=== PATIENT | male | born 1975 | race Caucasian/White ===

== ENCOUNTER 2023-02-27 18:39 | Inpatient (IN) | payer MEDICARE, MEDICAID ==
[~2023-02-27] VITALS: Ht 177.8 cm; Wt 69.7 kg
[2023-02-27] MEDS ORDERED: CLOZ100T5 PO (18:58)
[2023-02-27] MEDS ORDERED: CLOZ50TA4 PO (18:59)
[2023-02-27 19:27] LABS: HEMATOCRIT 42.7 % (42.0-52.0); HEMOGLOBIN 14.7 g/dl (13.5-17.5); MEAN CORPUSCULAR HEMOGLOBIN 28.9 pg (27.0-33.0); MEAN CORPUSCULAR HGB CONC 34.4 g/dl (32.0-36.5); MEAN CORPUSCULAR VOLUME 83.9 fl (80.0-96.0); PLATELET COUNT, AUTOMATED 311 10^3/uL (150-450); RED BLOOD COUNT 5.09 10^6/uL (4.30-6.10); WHITE BLOOD COUNT 13.1 10^3/uL (4.0-10.0)
[2023-02-27 19:56] LABS: ETHYL ALCOHOL (ETHANOL) < 0.003 % (0.000-0.010)
[2023-02-27 19:57] LABS: ACETAMINOPHEN LEVEL < 2.0 UG/ML (10.0-20.0); SALICYLATE LEVEL < 3.0 MG/DL (<30)
[2023-02-27 19:58] LABS: ALBUMIN 4.2 G/DL (3.2-5.2); ALKALINE PHOSPHATASE 64 U/L (46-116); ALT/SGPT 103 U/L (7.0-40); AST/SGOT 242 U/L (<34); BILIRUBIN,DIRECT 0.4 MG/DL (<0.4); BLOOD UREA NITROGEN 26 MG/DL (9-23); CALCIUM LEVEL 8.8 MG/DL (8.5-10.1); CARBON DIOXIDE LEVEL 22 MMOL/L (20-31); CHLORIDE LEVEL 104 MMOL/L (98-107); CREATININE FOR GFR 1.03 MG/DL (0.70-1.30); GLOMERULAR FILTRATION RATE > 60.0 (>60); GLUCOSE, FASTING 119 MG/DL (60-100); POTASSIUM SERUM 3.8 MMOL/L (3.5-5.1); SODIUM LEVEL 138 MMOL/L (136-145)
[2023-02-27 20:00] LABS: THYROID STIMULATING HORMONE 1.695 uIU/ML (0.55-4.78)
[2023-02-27] MEDS ORDERED: OLANZapine ORAL DISINTEGRATING TAB 5MG PO ONE (20:00)
[2023-02-27] MEDS ORDERED: OLANZapine INTRAMUSCULAR 10MG VIAL IM ONE (20:20)
[2023-02-27] MEDS ORDERED: HOME MED LIST COMPLETE! XX SCH (20:35)
[2023-02-27] MEDS ORDERED: MOM 30ML SUSPENSION UDC PO PRN (22:00)
[2023-02-27] MEDS ORDERED: OLANZapine 10 MG TAB PO ONE (22:00)
[2023-02-27] MEDS ORDERED: MAALOX 30 ML SUSP *UDC PO PRN (22:00)
[2023-02-28 00:10] LABS: BASO # 0.1 10^3/uL (0.0-0.2); BASO % 0.4 % (0.0-1.0); EOS # 0.1 10^3/uL (0.0-0.5); EOS % 0.4 % (0.0-3.0); HEMATOCRIT 43.5 % (42.0-52.0); HEMOGLOBIN 14.7 g/dl (13.5-17.5); LYMPH # 2.4 10^3/uL (1.5-5.0); LYMPH % 17.8 % (24.0-44.0); MEAN CORPUSCULAR HEMOGLOBIN 28.6 pg (27.0-33.0); MEAN CORPUSCULAR HGB CONC 33.8 g/dl (32.0-36.5); MEAN CORPUSCULAR VOLUME 84.6 fl (80.0-96.0); MONO % 13.6 % (2.0-8.0); NEUTROPHILS # 9.1 10^3/uL (1.5-8.5); NEUTROPHILS % 67.4 % (36.0-66.0); PLATELET COUNT, AUTOMATED 304 10^3/uL (150-450); RED BLOOD COUNT 5.14 10^6/uL (4.30-6.10); WHITE BLOOD COUNT 13.6 10^3/uL (4.0-10.0)
[2023-02-28 00:28] LABS: MONO # 1.8 10^3/uL (0.0-0.8)
[2023-02-28 09:38] LABS: BASO # 0.1 10^3/uL (0.0-0.2); BASO % 0.4 % (0.0-1.0); EOS % 0.2 % (0.0-3.0); HEMATOCRIT 43.1 % (42.0-52.0); HEMOGLOBIN 14.7 g/dl (13.5-17.5); LYMPH # 2.2 10^3/uL (1.5-5.0); LYMPH % 16.9 % (24.0-44.0); MEAN CORPUSCULAR HEMOGLOBIN 29.1 pg (27.0-33.0); MEAN CORPUSCULAR HGB CONC 34.1 g/dl (32.0-36.5); MEAN CORPUSCULAR VOLUME 85.3 fl (80.0-96.0); MONO % 14.9 % (2.0-8.0); NEUTROPHILS # 8.9 10^3/uL (1.5-8.5); NEUTROPHILS % 67.3 % (36.0-66.0); PLATELET COUNT, AUTOMATED 338 10^3/uL (150-450); RED BLOOD COUNT 5.05 10^6/uL (4.30-6.10); WHITE BLOOD COUNT 13.2 10^3/uL (4.0-10.0)
[2023-02-28 09:46] LABS: ALBUMIN 4.3 G/DL (3.2-5.2); ALKALINE PHOSPHATASE 64 U/L (46-116); ALT/SGPT 130 U/L (7.0-40); AST/SGOT 312 U/L (<34); BILIRUBIN,DIRECT 0.5 MG/DL (<0.4); TOTAL PROTEIN 7.2 G/DL (5.7-8.2)
[2023-02-28] MEDS: NICOTINE 21MG/24HR 1 EA TRANSDERMAL TD SCH (11:58)
[2023-02-28 12:46] LABS: HEPATITIS B SURFACE ANTIGEN NEGATIVE (NEGATIVE)
[2023-02-28 13:06] LABS: HEPATITIS B CORE ANTIBODY IGM NEGATIVE (NEGATIVE)
[2023-02-28 13:07] LABS: HEPATITIS C VIRUS ABY INDEX < 0.0 INDEX (<0.8)
[2023-02-28] MEDS: traZODone 50 MG TAB PO PRN (20:40)
[2023-03-01 07:15] LABS: CHOLESTEROL LEVEL 119 MG/DL (<200); CHOLESTEROL RISK RATIO 3.96 (<5); TRIGLYCERIDES LEVEL 80 MG/DL (<150)
[2023-03-01] MEDS: NICOTINE 21MG/24HR 1 EA TRANSDERMAL TD SCH (09:00)
[2023-03-01] MEDS: OLANZapine ORAL DISINTEGRATING TAB 5MG PO PRN (09:37)
[2023-03-01] MEDS: traZODone 50 MG TAB PO PRN (22:50)
[2023-03-02] MEDS: NICOTINE 21MG/24HR 1 EA TRANSDERMAL TD SCH (09:00)
[2023-03-02 14:11] LABS: ALBUMIN 4.1 G/DL (3.2-5.2); BILIRUBIN,DIRECT 0.5 MG/DL (<0.4)
[2023-03-02 17:14] VITALS: BP 119/64
[2023-03-02] MEDS: traZODone 50 MG TAB PO PRN (20:36)
[2023-03-03 06:00] VITALS: BP 132/86
[2023-03-03] MEDS: OLANZapine ORAL DISINTEGRATING TAB 5MG PO PRN (10:20)
[2023-03-03 15:13] LABS: CLOZAPINE 1 446 ng/mL (350-650); CLOZAPINE 2 326 ng/mL (Not Estab.); CLOZAPINE 3 772 ng/mL (.)
[2023-03-03] MEDS: traZODone 50 MG TAB PO PRN (21:29)
[2023-03-04] MEDS: ACETAMINOPHEN TAB 650MG DOSE (2X325MG) PO PRN (08:17)
[2023-03-04 08:25] LABS: BASO # 0.1 10^3/uL (0.0-0.2); BASO % 0.4 % (0.0-1.0); EOS % 0.1 % (0.0-3.0); HEMATOCRIT 45.9 % (42.0-52.0); HEMOGLOBIN 15.2 g/dl (13.5-17.5); LYMPH # 2.2 10^3/uL (1.5-5.0); MEAN CORPUSCULAR HEMOGLOBIN 28.5 pg (27.0-33.0); MEAN CORPUSCULAR HGB CONC 33.1 g/dl (32.0-36.5); MEAN CORPUSCULAR VOLUME 86.1 fl (80.0-96.0); MONO # 1.2 10^3/uL (0.0-0.8); MONO % 8.5 % (2.0-8.0); NEUTROPHILS # 10.4 10^3/uL (1.5-8.5); NEUTROPHILS % 74.4 % (36.0-66.0); PLATELET COUNT, AUTOMATED 490 10^3/uL (150-450); RED BLOOD COUNT 5.33 10^6/uL (4.30-6.10); WHITE BLOOD COUNT 13.9 10^3/uL (4.0-10.0)
[2023-03-04 19:08] VITALS: BP 130/70
[2023-03-04] MEDS: traZODone 50 MG TAB PO PRN (20:31)
[2023-03-05] MEDS: ACETAMINOPHEN TAB 650MG DOSE (2X325MG) PO PRN (07:31)
[2023-03-05] MEDS ORDERED: DOCUSATE SODIUM 100MG CAPSULE PO SCH (09:00)
[2023-03-05 09:12] LABS: ALBUMIN 4.2 G/DL (3.2-5.2); BILIRUBIN,DIRECT 0.2 MG/DL (<0.4); BILIRUBIN,TOTAL 0.6 MG/DL (0.3-1.2); TOTAL PROTEIN 7.1 G/DL (5.7-8.2)
[2023-03-05] MEDS ORDERED: DOCUSATE SODIUM 100MG CAPSULE PO PRN (10:35)
[2023-03-05] MEDS: OLANZapine ORAL DISINTEGRATING TAB 5MG PO PRN (10:49)
[2023-03-05] MEDS: predniSONE 20 MG TAB PO SCH ×2 (12:52→21:36)
[2023-03-05 13:30] LABS: FERRITIN 154.4 NG/ML (10.5-307.3)
[2023-03-05 13:37] LABS: MONO REFLEX EBV COMP NEGATIVE (NEGATIVE)
[2023-03-05] MEDS: BETAMETHASONE VAL 0.1% OINT 15 GM TOP SCH ×2 (14:14→21:00)
[2023-03-05] MEDS: traZODone 50 MG TAB PO PRN (21:36)
[2023-03-06] MEDS ORDERED: LORazepam 2 MG TAB PO ONE (08:15)
[2023-03-06] MEDS ORDERED: diphenhydrAMINE 50MG CAP PO ONE (08:15)
[2023-03-06] MEDS: predniSONE 20 MG TAB PO SCH ×2 (08:47→21:28)
[2023-03-06] MEDS: BETAMETHASONE VAL 0.1% OINT 15 GM TOP SCH ×2 (14:07→21:29)
[2023-03-06 18:11] LABS: ANTI-MITOCHONDRIAL ANTIBODY <20.0 Units (0.0-20.0); EBV VIRAL CAPSID AG IgG >600.0 U/mL (0.0-17.9); EBV VIRAL CAPSID AG IgM <36.0 U/mL (0.0-35.9); LIVER-KIDNEY MICROSOMAL ABY <20.1 Units (0.0-20.0)
[2023-03-06 18:30] VITALS: BP 118/66
[2023-03-06] MEDS: hydrOXYzine 50 MG TAB PO PRN (18:43)
[2023-03-06] MEDS: traZODone 50 MG TAB PO PRN (21:28)
[2023-03-07] MEDS: hydrOXYzine 50 MG TAB PO PRN ×4 (04:33→21:49)
[2023-03-07] MEDS: ACETAMINOPHEN TAB 650MG DOSE (2X325MG) PO PRN (05:44)
[2023-03-07 09:15] LABS: HEMATOCRIT 43.3 % (42.0-52.0); HEMOGLOBIN 13.8 g/dl (13.5-17.5); MEAN CORPUSCULAR HEMOGLOBIN 28.3 pg (27.0-33.0); MEAN CORPUSCULAR HGB CONC 31.9 g/dl (32.0-36.5); MEAN CORPUSCULAR VOLUME 88.7 fl (80.0-96.0); PLATELET COUNT, AUTOMATED 472 10^3/uL (150-450); RED BLOOD COUNT 4.88 10^6/uL (4.30-6.10)
[2023-03-07 09:29] LABS: BLOOD UREA NITROGEN 45 MG/DL (9-23); CALCIUM LEVEL 9.4 MG/DL (8.5-10.1); CARBON DIOXIDE LEVEL 29 MMOL/L (20-31); CHLORIDE LEVEL 116 MMOL/L (98-107); CREATININE FOR GFR 0.97 MG/DL (0.70-1.30); GLOMERULAR FILTRATION RATE > 60.0 (>60); GLUCOSE, FASTING 109 MG/DL (60-100); POTASSIUM SERUM 4.5 MMOL/L (3.5-5.1); SODIUM LEVEL 153 MMOL/L (136-145)
[2023-03-07 09:34] LABS: LYMPHOCYTES 12 % (16-44); MONOCYTES 8 % (0-5); NEUTROPHILS 80 % (28-66)
[2023-03-07 09:36] LABS: PLATELET ESTIMATE INCREASED (NORMAL)
[2023-03-07] MEDS: predniSONE 20 MG TAB PO SCH ×2 (09:46→21:49)
[2023-03-07] MEDS: BETAMETHASONE VAL 0.1% OINT 15 GM TOP SCH (09:51)
[2023-03-07] MEDS ORDERED: LORazepam 2 MG TAB PO STA (10:19)
[2023-03-07] MEDS ORDERED: diphenhydrAMINE 50MG CAP PO STA (10:19)
[2023-03-07] MEDS: BENZTROPINE 1 MG TAB PO SCH ×2 (10:31→21:49)
[2023-03-07 18:47] VITALS: BP 130/78
[2023-03-07 20:08] LABS: BLOOD UREA NITROGEN 39 MG/DL (9-23); CALCIUM LEVEL 9.7 MG/DL (8.5-10.1); CARBON DIOXIDE LEVEL 32 MMOL/L (20-31); CHLORIDE LEVEL 111 MMOL/L (98-107); GLOMERULAR FILTRATION RATE > 60.0 (>60); GLUCOSE, FASTING 111 MG/DL (60-100); POTASSIUM SERUM 4.7 MMOL/L (3.5-5.1); SODIUM LEVEL 148 MMOL/L (136-145)
[2023-03-07] MEDS: traZODone 50 MG TAB PO PRN (21:49)
[2023-03-07] MEDS: BETAMETHASONE VAL 0.1% CR 15 GM TOP SCH (21:50)
[2023-03-08] MEDS: BENZTROPINE 1 MG TAB PO SCH ×2 (09:44→21:04)
[2023-03-08] MEDS: BETAMETHASONE VAL 0.1% CR 15 GM TOP SCH ×2 (09:45→21:04)
[2023-03-08] MEDS: hydrOXYzine 50 MG TAB PO PRN ×2 (13:18→18:12)
[2023-03-08] MEDS: OLANZapine ORAL DISINTEGRATING TAB 5MG PO PRN (15:39)
[2023-03-08 16:15] VITALS: BP 141/79
[2023-03-09] MEDS: BENZTROPINE 1 MG TAB PO SCH ×2 (07:40→20:25)
[2023-03-09 07:41] LABS: BLOOD UREA NITROGEN 37 MG/DL (9-23); CALCIUM LEVEL 9.1 MG/DL (8.5-10.1); CARBON DIOXIDE LEVEL 28 MMOL/L (20-31); CHLORIDE LEVEL 114 MMOL/L (98-107); GLOMERULAR FILTRATION RATE > 60.0 (>60); GLUCOSE, FASTING 91 MG/DL (60-100); POTASSIUM SERUM 4.1 MMOL/L (3.5-5.1); SODIUM LEVEL 145 MMOL/L (136-145)
[2023-03-09] MEDS: OLANZapine ORAL DISINTEGRATING TAB 5MG PO PRN (08:10)
[2023-03-09 09:29] LABS: ALBUMIN 3.4 G/DL (3.2-5.2); ALKALINE PHOSPHATASE 58 U/L (46-116); ALT/SGPT 173 U/L (7.0-40); AST/SGOT 94 U/L (<34); BILIRUBIN,DIRECT 0.3 MG/DL (<0.4); BILIRUBIN,TOTAL 0.6 MG/DL (0.3-1.2); TOTAL PROTEIN 5.9 G/DL (5.7-8.2)
[2023-03-09] MEDS: BETAMETHASONE VAL 0.1% CR 15 GM TOP SCH (11:38)
[2023-03-09 14:13] VITALS: BP 144/93
[2023-03-09] MEDS: hydrOXYzine 50 MG TAB PO PRN (14:16)
[2023-03-09 14:28] LABS: BASO # 0.1 10^3/uL (0.0-0.2); BASO % 0.4 % (0.0-1.0); EOS # 0.2 10^3/uL (0.0-0.5); EOS % 1.3 % (0.0-3.0); HEMATOCRIT 38.2 % (42.0-52.0); HEMOGLOBIN 12.7 g/dl (13.5-17.5); LYMPH # 2.9 10^3/uL (1.5-5.0); LYMPH % 19.7 % (24.0-44.0); MEAN CORPUSCULAR HGB CONC 33.2 g/dl (32.0-36.5); MEAN CORPUSCULAR VOLUME 87.2 fl (80.0-96.0); MONO % 12.7 % (2.0-8.0); NEUTROPHILS # 9.5 10^3/uL (1.5-8.5); NEUTROPHILS % 64.6 % (36.0-66.0); PLATELET COUNT, AUTOMATED 370 10^3/uL (150-450); RED BLOOD COUNT 4.38 10^6/uL (4.30-6.10); WHITE BLOOD COUNT 14.8 10^3/uL (4.0-10.0)
[2023-03-09 15:24] LABS: MONO # 1.9 10^3/uL (0.0-0.8)
[2023-03-09] MEDS ORDERED: predniSONE 20 MG TAB PO SCH (18:40)
[2023-03-09] MEDS ORDERED: LORazepam 1 MG TAB PO ONE (18:40)
[2023-03-09] MEDS: CLOBETASOL PROP 0.05% OINT 30 GM TOP SCH (20:25)
[2023-03-10] MEDS: BENZTROPINE 1 MG TAB PO SCH ×2 (08:50→21:50)
[2023-03-10] MEDS ORDERED: predniSONE 20 MG TAB PO ONE (08:50)
[2023-03-10] MEDS ORDERED: LORazepam 2 MG TAB PO ONE (08:50)
[2023-03-10] MEDS ORDERED: diphenhydrAMINE 50MG CAP PO ONE (08:50)
[2023-03-10] MEDS ORDERED: LORazepam 2 MG/ML 1ML VIAL IM STA (08:59)
[2023-03-10] MEDS ORDERED: chlorproMAZINE INJ 50MG/2ML AMP IM STA (08:59)
[2023-03-10] MEDS ORDERED: diphenhydrAMINE 50MG/ML VIAL IM STA (08:59)
[2023-03-10] MEDS ORDERED: predniSONE 20 MG TAB PO SCH (09:00)
[2023-03-10 09:25] LABS: BLOOD UREA NITROGEN 32 MG/DL (9-23); CALCIUM LEVEL 8.8 MG/DL (8.5-10.1); CARBON DIOXIDE LEVEL 27 MMOL/L (20-31); CHLORIDE LEVEL 112 MMOL/L (98-107); CREATININE FOR GFR 0.88 MG/DL (0.70-1.30); GLOMERULAR FILTRATION RATE > 60.0 (>60); GLUCOSE, FASTING 87 MG/DL (60-100); POTASSIUM SERUM 4.7 MMOL/L (3.5-5.1); SODIUM LEVEL 146 MMOL/L (136-145)
[2023-03-10] MEDS: CLOBETASOL PROP 0.05% OINT 30 GM TOP SCH ×2 (10:33→21:50)
[2023-03-10 16:01] VITALS: BP 137/95
[2023-03-11 07:18] LABS: BLOOD UREA NITROGEN 35 MG/DL (9-23); CALCIUM LEVEL 8.9 MG/DL (8.5-10.1); CARBON DIOXIDE LEVEL 26 MMOL/L (20-31); CHLORIDE LEVEL 115 MMOL/L (98-107); CREATININE FOR GFR 0.91 MG/DL (0.70-1.30); GLOMERULAR FILTRATION RATE > 60.0 (>60); GLUCOSE, FASTING 93 MG/DL (60-100); POTASSIUM SERUM 4.9 MMOL/L (3.5-5.1); SODIUM LEVEL 149 MMOL/L (136-145)
[2023-03-11] MEDS: hydrOXYzine 50 MG TAB PO PRN (09:11)
[2023-03-11] MEDS: BENZTROPINE 1 MG TAB PO SCH ×2 (09:11→21:33)
[2023-03-11] MEDS: predniSONE 20 MG TAB PO SCH (09:11)
[2023-03-11] MEDS: CLOBETASOL PROP 0.05% OINT 30 GM TOP SCH ×2 (09:16→21:32)
[2023-03-11] MEDS ORDERED: LORazepam 1 MG TAB PO ONE (13:45)
[2023-03-12 07:14] VITALS: BP 122/95
[2023-03-12 07:42] LABS: BLOOD UREA NITROGEN 34 MG/DL (9-23); CALCIUM LEVEL 8.9 MG/DL (8.5-10.1); CARBON DIOXIDE LEVEL 29 MMOL/L (20-31); CHLORIDE LEVEL 107 MMOL/L (98-107); CREATININE FOR GFR 0.87 MG/DL (0.70-1.30); GLOMERULAR FILTRATION RATE > 60.0 (>60); GLUCOSE, FASTING 81 MG/DL (60-100); POTASSIUM SERUM 4.9 MMOL/L (3.5-5.1); SODIUM LEVEL 143 MMOL/L (136-145)
[2023-03-12] MEDS: BENZTROPINE 1 MG TAB PO SCH ×2 (07:43→21:53)
[2023-03-12] MEDS: predniSONE 20 MG TAB PO SCH (07:43)
[2023-03-12] MEDS: CLOBETASOL PROP 0.05% OINT 30 GM TOP SCH ×2 (09:00→21:00)
[2023-03-12 15:57] VITALS: BP 132/74
[2023-03-12] MEDS: hydrOXYzine 50 MG TAB PO PRN (18:00)
[2023-03-13] MEDS: BENZTROPINE 1 MG TAB PO SCH ×2 (08:14→21:48)
[2023-03-13] MEDS: CLOBETASOL PROP 0.05% OINT 30 GM TOP SCH ×2 (09:00→21:00)
[2023-03-13] MEDS ORDERED: predniSONE 20 MG TAB PO SCH (09:00)
[2023-03-13 16:27] VITALS: BP 142/90
[2023-03-14 08:35] VITALS: BP 147/114
[2023-03-14] MEDS: BENZTROPINE 1 MG TAB PO SCH (08:41)
[2023-03-14] MEDS: CLOBETASOL PROP 0.05% OINT 30 GM TOP SCH (08:41)
[2023-03-14] MEDS ORDERED: predniSONE 20 MG TAB PO SCH ×2 (09:00)
[2023-03-14 09:17] VITALS: BP 147/114
[2023-03-14 09:22] LABS: HEMATOCRIT 39.4 % (42.0-52.0); HEMOGLOBIN 13.1 g/dl (13.5-17.5); MEAN CORPUSCULAR HEMOGLOBIN 28.7 pg (27.0-33.0); MEAN CORPUSCULAR HGB CONC 33.2 g/dl (32.0-36.5); MEAN CORPUSCULAR VOLUME 86.2 fl (80.0-96.0); PLATELET COUNT, AUTOMATED 389 10^3/uL (150-450); RED BLOOD COUNT 4.57 10^6/uL (4.30-6.10); WHITE BLOOD COUNT 16.2 10^3/uL (4.0-10.0)
[2023-03-14 09:47] LABS: ALBUMIN 3.2 G/DL (3.2-5.2); ALKALINE PHOSPHATASE 61 U/L (46-116); ALT/SGPT 87 U/L (7.0-40); AST/SGOT 57 U/L (<34); BILIRUBIN,TOTAL 0.6 MG/DL (0.3-1.2); BLOOD UREA NITROGEN 25 MG/DL (9-23); CARBON DIOXIDE LEVEL 29 MMOL/L (20-31); CHLORIDE LEVEL 106 MMOL/L (98-107); CREATININE FOR GFR 0.84 MG/DL (0.70-1.30); GLOMERULAR FILTRATION RATE > 60.0 (>60); GLUCOSE, FASTING 91 MG/DL (60-100); POTASSIUM SERUM 4.3 MMOL/L (3.5-5.1); SODIUM LEVEL 140 MMOL/L (136-145); TOTAL PROTEIN 5.7 G/DL (5.7-8.2)
[2023-03-14 10:03] LABS: ATYPICAL LYMPH 6 % (0-5); LYMPHOCYTES 11 % (16-44); MONOCYTES 7 % (0-5); MYELOCYTES 1 % (0-0); NEUTROPHILS 75 % (28-66)
[2023-03-14 10:04] LABS: PLATELET CLUMPS SMALL AMT; PLATELET ESTIMATE NORMAL (NORMAL)
[2023-03-16] MEDS ORDERED: predniSONE 20 MG TAB PO SCH (09:00)
[2023-03-16] MEDS ORDERED: predniSONE 10MG TAB PO SCH ×2 (09:00)
[2023-03-19] MEDS ORDERED: predniSONE 10MG TAB PO SCH (09:00)
== END 2023-03-14 11:00 | DRG 885 ==
LOC: M ED 18:39 → M ED INP 22:00 → M PSY 22:48
PROVIDERS: ADMIT Psychiatry & Neurology Psychiatry; ATTEND Student in an Organized Health Care Education/Training Program
DX: F31.9 Bipolar disorder, unspecified (principal); E87.0 Hyperosmolality and hypernatremia; G91.9 Hydrocephalus, unspecified; F25.9 Schizoaffective disorder, unspecified; F12.90 Cannabis use, unspecified, uncomplicated; F17.200 Nicotine dependence, unspecified, uncomplicated; D72.829 Elevated white blood cell count, unspecified; K76.0 Fatty (change of) liver, not elsewhere classified; R21 Rash and other nonspecific skin eruption; B35.1 Tinea unguium; B35.4 Tinea corporis

== ENCOUNTER 2023-03-14 08:34 | Inpatient (IN) | payer MEDICARE, MEDICAID ==
[~2023-03-14] VITALS: Ht 177.8 cm; Wt 64.9 kg
[~2023-03-14 08:34] MED LIST: CLOZ100T5 PO; CLOZ50TA4 PO
[2023-03-14 11:22] VITALS: BP 103/57; TEMP 98.6; O2SAT 93
[2023-03-14] MEDS ORDERED: DEXTROSE 50% 50ML SYRINGE IV PRN (11:40)
[2023-03-14] MEDS ORDERED: GLUCOSE 4GM CHEW TABLET PO PRN (11:40)
[2023-03-14] MEDS ORDERED: GLUCAGON INJ 1MG VIAL SC PRN (11:40)
[2023-03-14] MEDS ORDERED: D5W/0.45% SODIUM CHLORIDE 1,000 ML IV SCH (12:00)
[2023-03-14] MEDS ORDERED: NS 1,000 ML IV ONE (12:00)
[2023-03-14] MEDS ORDERED: LORazepam 2 MG/ML 1ML VIAL IV ONE (12:30)
[2023-03-14 12:52] LABS: TOTAL 25(OH) VITAMIN D 37.2 NG/ML (20.0-100.0)
[2023-03-14] MEDS: D5W/0.45% SODIUM CHLORIDE 1,000 ML IV SCH (13:13)
[2023-03-14 14:40] VITALS: BP 106/72
[2023-03-14 15:49] VITALS: BP 110/56; TEMP 98.3; O2SAT 99
[2023-03-14] MEDS: CLOBETASOL PROP 0.05% OINT 30 GM TOP SCH (19:03)
[2023-03-14 20:02] VITALS: BP 121/82; TEMP 98.3; O2SAT 99
[2023-03-14] MEDS: BENZTROPINE 1 MG TAB PO SCH (21:46)
[2023-03-15] VITALS (7 sets, daily range): BP systolic 109–118; BP diastolic 58–74; TEMP 98.3–99.1; O2SAT 96–99
[2023-03-15] MEDS: D5W/0.45% SODIUM CHLORIDE 1,000 ML IV SCH ×2 (01:26→14:51)
[2023-03-15 08:01] LABS: BASO % 0.4 % (0.0-1.0); EOS # 0.1 10^3/uL (0.0-0.5); EOS % 1.4 % (0.0-3.0); HEMATOCRIT 35.8 % (42.0-52.0); HEMOGLOBIN 11.7 g/dl (13.5-17.5); LYMPH # 2.1 10^3/uL (1.5-5.0); LYMPH % 20.3 % (24.0-44.0); MEAN CORPUSCULAR HEMOGLOBIN 28.8 pg (27.0-33.0); MEAN CORPUSCULAR HGB CONC 32.7 g/dl (32.0-36.5); MEAN CORPUSCULAR VOLUME 88.2 fl (80.0-96.0); MONO # 1.1 10^3/uL (0.0-0.8); MONO % 10.7 % (2.0-8.0); NEUTROPHILS # 6.9 10^3/uL (1.5-8.5); NEUTROPHILS % 66.1 % (36.0-66.0); PLATELET COUNT, AUTOMATED 290 10^3/uL (150-450); RED BLOOD COUNT 4.06 10^6/uL (4.30-6.10); WHITE BLOOD COUNT 10.4 10^3/uL (4.0-10.0)
[2023-03-15 08:26] LABS: BLOOD UREA NITROGEN 21 MG/DL (9-23); CARBON DIOXIDE LEVEL 26 MMOL/L (20-31); CHLORIDE LEVEL 108 MMOL/L (98-107); GLOMERULAR FILTRATION RATE > 60.0 (>60); GLUCOSE, FASTING 95 MG/DL (60-100); POTASSIUM SERUM 3.8 MMOL/L (3.5-5.1); SODIUM LEVEL 139 MMOL/L (136-145)
[2023-03-15] MEDS ORDERED: diphenhydrAMINE 25MG CAP PO SCH (09:00)
[2023-03-15] MEDS: BENZTROPINE 1 MG TAB PO SCH (09:52)
[2023-03-15] MEDS: CLOBETASOL PROP 0.05% OINT 30 GM TOP SCH (09:53)
[2023-03-15] MEDS: ENOXAPARIN 40MG/0.4ML SYRINGE (J1650 PER 10MG) SC SCH (09:53)
[2023-03-15] MEDS ORDERED: HALOPERIDOL 5MG/ML 1ML VIAL IM PRN ×2 (11:30→14:55)
[2023-03-15] MEDS ORDERED: LORazepam 2 MG/ML 1ML VIAL IV PRN (11:30)
[2023-03-15] MEDS ORDERED: PILL CUTTER 1 EACH XX PRN (12:55)
[2023-03-15 15:19] LABS: PHOSPHORUS LEVEL 2.5 MG/DL (2.5-4.9)
[2023-03-15] MEDS ORDERED: diphenhydrAMINE 25MG CAP PO PRN (16:20)
[2023-03-15] MEDS: LORazepam 2 MG/ML 1ML VIAL IV SCH (20:57)
[2023-03-15] MEDS ORDERED: diphenhydrAMINE 50MG CAP PO SCH (21:00)
[2023-03-16] VITALS (7 sets, daily range): BP systolic 113–138; BP diastolic 61–89; TEMP 97.8–99.9; O2SAT 94–97
[2023-03-16] MEDS: LORazepam 2 MG/ML 1ML VIAL IV SCH ×4 (03:45→20:39)
[2023-03-16] MEDS: D5W/0.45% SODIUM CHLORIDE 1,000 ML IV SCH ×2 (04:00→17:14)
[2023-03-16 05:43] LABS: BASO # 0.1 10^3/uL (0.0-0.2); BASO % 0.5 % (0.0-1.0); EOS # 0.1 10^3/uL (0.0-0.5); EOS % 1.1 % (0.0-3.0); HEMATOCRIT 37.3 % (42.0-52.0); HEMOGLOBIN 12.3 g/dl (13.5-17.5); LYMPH # 2.2 10^3/uL (1.5-5.0); LYMPH % 23.3 % (24.0-44.0); MEAN CORPUSCULAR HEMOGLOBIN 28.3 pg (27.0-33.0); MEAN CORPUSCULAR VOLUME 85.9 fl (80.0-96.0); MONO # 1.1 10^3/uL (0.0-0.8); MONO % 11.3 % (2.0-8.0); NEUTROPHILS % 62.3 % (36.0-66.0); PLATELET COUNT, AUTOMATED 281 10^3/uL (150-450); RED BLOOD COUNT 4.34 10^6/uL (4.30-6.10); WHITE BLOOD COUNT 9.6 10^3/uL (4.0-10.0)
[2023-03-16 06:07] LABS: BLOOD UREA NITROGEN 15 MG/DL (9-23); CARBON DIOXIDE LEVEL 25 MMOL/L (20-31); CHLORIDE LEVEL 109 MMOL/L (98-107); CREATININE FOR GFR 0.76 MG/DL (0.70-1.30); GLOMERULAR FILTRATION RATE > 60.0 (>60); GLUCOSE, FASTING 97 MG/DL (60-100); MAGNESIUM LEVEL 1.9 MG/DL (1.8-2.4); POTASSIUM SERUM 3.7 MMOL/L (3.5-5.1); SODIUM LEVEL 142 MMOL/L (136-145)
[2023-03-16] MEDS: ENOXAPARIN 40MG/0.4ML SYRINGE (J1650 PER 10MG) SC SCH (09:18)
[2023-03-16] MEDS: CLOBETASOL PROP 0.05% OINT 30 GM TOP SCH (09:19)
[2023-03-16] MEDS: TAMSULOSIN 0.4 MG CAP PO SCH (20:40)
[2023-03-17] VITALS (12 sets, daily range): BP systolic 132–147; BP diastolic 79–92; TEMP 98.3–102.2; O2SAT 94–97
[2023-03-17] MEDS: LORazepam 2 MG/ML 1ML VIAL IV SCH ×4 (02:41→22:16)
[2023-03-17] MEDS: D5W/0.45% SODIUM CHLORIDE 1,000 ML IV SCH ×3 (02:41→22:00)
[2023-03-17 06:11] LABS: HEMATOCRIT 35.3 % (42.0-52.0); HEMOGLOBIN 12.1 g/dl (13.5-17.5); MEAN CORPUSCULAR HEMOGLOBIN 28.8 pg (27.0-33.0); MEAN CORPUSCULAR HGB CONC 34.3 g/dl (32.0-36.5); PLATELET COUNT, AUTOMATED 340 10^3/uL (150-450); WHITE BLOOD COUNT 11.4 10^3/uL (4.0-10.0)
[2023-03-17 06:46] LABS: ALBUMIN 2.5 G/DL (3.2-5.2); ALKALINE PHOSPHATASE 57 U/L (46-116); ALT/SGPT 48 U/L (7.0-40); AST/SGOT 62 U/L (<34); BILIRUBIN,TOTAL 0.5 MG/DL (0.3-1.2); BLOOD UREA NITROGEN 9 MG/DL (9-23); CALCIUM LEVEL 7.9 MG/DL (8.5-10.1); CARBON DIOXIDE LEVEL 25 MMOL/L (20-31); CHLORIDE LEVEL 108 MMOL/L (98-107); CREATININE FOR GFR 0.71 MG/DL (0.70-1.30); GLOMERULAR FILTRATION RATE > 60.0 (>60); GLUCOSE, FASTING 109 MG/DL (60-100); POTASSIUM SERUM 3.6 MMOL/L (3.5-5.1); SODIUM LEVEL 141 MMOL/L (136-145); TOTAL PROTEIN 4.9 G/DL (5.7-8.2)
[2023-03-17] MEDS: ENOXAPARIN 40MG/0.4ML SYRINGE (J1650 PER 10MG) SC SCH (09:48)
[2023-03-17] MEDS: CLOBETASOL PROP 0.05% OINT 30 GM TOP SCH (09:49)
[2023-03-17] MEDS ORDERED: ACETAMINOPHEN TAB 650MG DOSE (2X325MG) PO PRN (18:55)
[2023-03-17] MEDS: ACETAMINOPHEN 650MG SUPP PR PRN (20:14)
[2023-03-17] MEDS: TAMSULOSIN 0.4 MG CAP PO SCH (21:00)
[2023-03-18] VITALS (11 sets, daily range): BP systolic 101–123; BP diastolic 55–66; TEMP 98.6–101.5; O2SAT 96–99
[2023-03-18] MEDS: ACETAMINOPHEN 650MG SUPP PR PRN (00:54)
[2023-03-18] MEDS: LORazepam 2 MG/ML 1ML VIAL IV SCH ×4 (03:22→23:21)
[2023-03-18 06:13] LABS: HEMATOCRIT 36.6 % (42.0-52.0); HEMOGLOBIN 12.3 g/dl (13.5-17.5); MEAN CORPUSCULAR HEMOGLOBIN 29.1 pg (27.0-33.0); MEAN CORPUSCULAR HGB CONC 33.6 g/dl (32.0-36.5); MEAN CORPUSCULAR VOLUME 86.5 fl (80.0-96.0); PLATELET COUNT, AUTOMATED 282 10^3/uL (150-450); RED BLOOD COUNT 4.23 10^6/uL (4.30-6.10); WHITE BLOOD COUNT 13.2 10^3/uL (4.0-10.0)
[2023-03-18 06:44] LABS: ALBUMIN 2.5 G/DL (3.2-5.2); ALKALINE PHOSPHATASE 57 U/L (46-116); ALT/SGPT 58 U/L (7.0-40); AST/SGOT 71 U/L (<34); BILIRUBIN,TOTAL 0.8 MG/DL (0.3-1.2); BLOOD UREA NITROGEN 9 MG/DL (9-23); CALCIUM LEVEL 7.8 MG/DL (8.5-10.1); CARBON DIOXIDE LEVEL 27 MMOL/L (20-31); CHLORIDE LEVEL 108 MMOL/L (98-107); CREATININE FOR GFR 0.64 MG/DL (0.70-1.30); GLOMERULAR FILTRATION RATE > 60.0 (>60); GLUCOSE, FASTING 102 MG/DL (60-100); POTASSIUM SERUM 3.8 MMOL/L (3.5-5.1); SODIUM LEVEL 141 MMOL/L (136-145)
[2023-03-18 08:29] LABS: C REACTIVE PROTEIN QUANTITATIV 5.2 MG/DL (<1.0)
[2023-03-18] MEDS: D5W/0.45% SODIUM CHLORIDE 1,000 ML IV SCH ×2 (08:34→18:11)
[2023-03-18] MEDS: CLOBETASOL PROP 0.05% OINT 30 GM TOP SCH (08:34)
[2023-03-18] MEDS: ENOXAPARIN 40MG/0.4ML SYRINGE (J1650 PER 10MG) SC SCH (08:50)
[2023-03-18 10:56] LABS: APPEARANCE, CSF CLEAR (CLEAR); COLOR, CSF COLORLESS (COLORLESS); CSF TUBE# CELL CNT TUBE 1
[2023-03-18 11:19] LABS: CSF TUBE# TP TUBE 2
[2023-03-18 11:22] LABS: CSF TUBE# GLU TUBE 2
[2023-03-18] MEDS ORDERED: VARIBAR NECTAR 40% w/v 240ML SUSP BTL As Ordered ONE (14:41)
[2023-03-18] MEDS ORDERED: VARIBAR PUDDING 40% w/v 230ML TUBE As Ordered ONE (14:41)
[2023-03-18] MEDS ORDERED: E-Z-PAQUE 96% w/w SUSP 176GM BTL As Ordered ONE (14:41)
[2023-03-18] MEDS ORDERED: BARIUM SULFATE 700 MG TABLET (E-Z-DISK) As Ordered ONE (14:41)
[2023-03-18] MEDS: cefTRIAXone SOD 1 GM in D5W MINI-BAG PLUS 50 ML IV SCH (19:50)
[2023-03-18] MEDS: TAMSULOSIN 0.4 MG CAP PO SCH (21:21)
[2023-03-18] MEDS: PANTOPRAZOLE 40MG VIAL IV SCH (21:21)
[2023-03-19 00:07] VITALS: BP 108/64; TEMP 98.4; O2SAT 96
[2023-03-19] MEDS: D5W/0.45% SODIUM CHLORIDE 1,000 ML IV SCH ×3 (02:58→19:18)
[2023-03-19] MEDS: LORazepam 2 MG/ML 1ML VIAL IV SCH ×6 (03:06→23:09)
[2023-03-19 04:50] VITALS: BP 135/67; TEMP 97.7; O2SAT 98
[2023-03-19 06:33] LABS: HEMATOCRIT 33.6 % (42.0-52.0); HEMOGLOBIN 11.3 g/dl (13.5-17.5); MEAN CORPUSCULAR HEMOGLOBIN 29.3 pg (27.0-33.0); MEAN CORPUSCULAR HGB CONC 33.6 g/dl (32.0-36.5); PLATELET COUNT, AUTOMATED 282 10^3/uL (150-450); RED BLOOD COUNT 3.86 10^6/uL (4.30-6.10); WHITE BLOOD COUNT 12.7 10^3/uL (4.0-10.0)
[2023-03-19 07:07] LABS: ALBUMIN 2.3 G/DL (3.2-5.2); ALKALINE PHOSPHATASE 57 U/L (46-116); ALT/SGPT 51 U/L (7.0-40); AST/SGOT 53 U/L (<34); BILIRUBIN,TOTAL 0.6 MG/DL (0.3-1.2); BLOOD UREA NITROGEN 8 MG/DL (9-23); CALCIUM LEVEL 7.8 MG/DL (8.5-10.1); CARBON DIOXIDE LEVEL 24 MMOL/L (20-31); CHLORIDE LEVEL 107 MMOL/L (98-107); CPK CREATINE PHOSPHOKINASE 420 U/L (46-171); CREATININE FOR GFR 0.63 MG/DL (0.70-1.30); GLOMERULAR FILTRATION RATE > 60.0 (>60); GLUCOSE, FASTING 100 MG/DL (60-100); POTASSIUM SERUM 3.7 MMOL/L (3.5-5.1); SODIUM LEVEL 140 MMOL/L (136-145); TOTAL PROTEIN 4.8 G/DL (5.7-8.2)
[2023-03-19 07:45] VITALS: BP 115/55; TEMP 98.8; O2SAT 97
[2023-03-19] MEDS: CLOBETASOL PROP 0.05% OINT 30 GM TOP SCH (09:28)
[2023-03-19] MEDS: ENOXAPARIN 40MG/0.4ML SYRINGE (J1650 PER 10MG) SC SCH (09:29)
[2023-03-19 12:00] VITALS: BP 123/54; TEMP 98.7; O2SAT 96
[2023-03-19 15:45] VITALS: BP 109/59; TEMP 98.7; O2SAT 95
[2023-03-19 20:00] VITALS: BP 119/67; TEMP 98; O2SAT 100
[2023-03-19] MEDS: PANTOPRAZOLE 40MG VIAL IV SCH (20:20)
[2023-03-19] MEDS: TAMSULOSIN 0.4 MG CAP PO SCH (20:20)
[2023-03-19] MEDS: cefTRIAXone SOD 1 GM in D5W MINI-BAG PLUS 50 ML IV SCH (20:20)
[2023-03-20] VITALS: BP 111/58; TEMP 98.7; O2SAT 98
[2023-03-20] MEDS: LORazepam 2 MG/ML 1ML VIAL IV SCH ×5 (03:20→22:00)
[2023-03-20 04:00] VITALS: BP 100/60; TEMP 98.6; O2SAT 95
[2023-03-20 04:20] LABS: HEMATOCRIT 32.1 % (42.0-52.0); HEMOGLOBIN 10.6 g/dl (13.5-17.5); MEAN CORPUSCULAR HEMOGLOBIN 28.6 pg (27.0-33.0); MEAN CORPUSCULAR VOLUME 86.8 fl (80.0-96.0); PLATELET COUNT, AUTOMATED 263 10^3/uL (150-450); WHITE BLOOD COUNT 10.9 10^3/uL (4.0-10.0)
[2023-03-20 04:43] LABS: ERYTHROCYTE SEDIMENTATION RATE 63 mm/hr (0-15)
[2023-03-20 04:52] LABS: ALBUMIN 2.2 G/DL (3.2-5.2); ALKALINE PHOSPHATASE 54 U/L (46-116); ALT/SGPT 42 U/L (7.0-40); AST/SGOT 35 U/L (<34); BILIRUBIN,TOTAL 0.6 MG/DL (0.3-1.2); BLOOD UREA NITROGEN 5 MG/DL (9-23); CALCIUM LEVEL 7.8 MG/DL (8.5-10.1); CARBON DIOXIDE LEVEL 25 MMOL/L (20-31); CHLORIDE LEVEL 107 MMOL/L (98-107); CREATININE FOR GFR 0.68 MG/DL (0.70-1.30); GLOMERULAR FILTRATION RATE > 60.0 (>60); GLUCOSE, FASTING 90 MG/DL (60-100); POTASSIUM SERUM 3.7 MMOL/L (3.5-5.1); SODIUM LEVEL 140 MMOL/L (136-145); TOTAL PROTEIN 4.7 G/DL (5.7-8.2)
[2023-03-20 04:53] LABS: CPK CREATINE PHOSPHOKINASE 209 U/L (46-171)
[2023-03-20] MEDS: D5W/0.45% SODIUM CHLORIDE 1,000 ML IV SCH ×2 (06:48→17:16)
[2023-03-20 08:25] VITALS: BP 94/53; TEMP 98.4; O2SAT 93
[2023-03-20] MEDS: AUGMENTIN 875 MG TAB PO SCH ×2 (09:00→20:59)
[2023-03-20] MEDS: ENOXAPARIN 40MG/0.4ML SYRINGE (J1650 PER 10MG) SC SCH (09:50)
[2023-03-20] MEDS: CLOBETASOL PROP 0.05% OINT 30 GM TOP SCH (09:51)
[2023-03-20 11:44] VITALS: BP 122/62; TEMP 97.8; O2SAT 93
[2023-03-20] MEDS ORDERED: LORazepam 2 MG/ML 1ML VIAL IV SCH (14:00)
[2023-03-20 15:47] VITALS: BP 104/56; TEMP 98.9; O2SAT 98
[2023-03-20 20:00] VITALS: BP 104/59; TEMP 100.5; O2SAT 96
[2023-03-20] MEDS: PANTOPRAZOLE 40MG VIAL IV SCH (20:58)
[2023-03-20] MEDS: TAMSULOSIN 0.4 MG CAP PO SCH (20:59)
[2023-03-21] VITALS: BP 116/62; TEMP 99.7; O2SAT 98
[2023-03-21 03:37] LABS: HEMATOCRIT 32.6 % (42.0-52.0); HEMOGLOBIN 10.7 g/dl (13.5-17.5); MEAN CORPUSCULAR HEMOGLOBIN 28.7 pg (27.0-33.0); MEAN CORPUSCULAR HGB CONC 32.8 g/dl (32.0-36.5); MEAN CORPUSCULAR VOLUME 87.4 fl (80.0-96.0); PLATELET COUNT, AUTOMATED 291 10^3/uL (150-450); RED BLOOD COUNT 3.73 10^6/uL (4.30-6.10); WHITE BLOOD COUNT 10.3 10^3/uL (4.0-10.0)
[2023-03-21 04:00] VITALS: BP 118/63; TEMP 98.6; O2SAT 95
[2023-03-21 04:01] LABS: CPK CREATINE PHOSPHOKINASE 107 U/L (46-171)
[2023-03-21 04:02] LABS: ALBUMIN 2.2 G/DL (3.2-5.2); ALKALINE PHOSPHATASE 55 U/L (46-116); ALT/SGPT 35 U/L (7.0-40); AST/SGOT 26 U/L (<34); BILIRUBIN,TOTAL 0.6 MG/DL (0.3-1.2); BLOOD UREA NITROGEN 6 MG/DL (9-23); CALCIUM LEVEL 7.8 MG/DL (8.5-10.1); CARBON DIOXIDE LEVEL 26 MMOL/L (20-31); CHLORIDE LEVEL 106 MMOL/L (98-107); CREATININE FOR GFR 0.68 MG/DL (0.70-1.30); GLOMERULAR FILTRATION RATE > 60.0 (>60); GLUCOSE, FASTING 105 MG/DL (60-100); POTASSIUM SERUM 3.8 MMOL/L (3.5-5.1); SODIUM LEVEL 139 MMOL/L (136-145); TOTAL PROTEIN 4.7 G/DL (5.7-8.2)
[2023-03-21] MEDS: D5W/0.45% SODIUM CHLORIDE 1,000 ML IV SCH ×2 (04:11→13:11)
[2023-03-21] MEDS: LORazepam 2 MG/ML 1ML VIAL IV SCH ×2 (06:00→13:11)
[2023-03-21 07:32] VITALS: BP 119/71; TEMP 98.4; O2SAT 94
[2023-03-21] MEDS: AUGMENTIN 875 MG TAB PO SCH ×2 (09:10→21:59)
[2023-03-21] MEDS: ENOXAPARIN 40MG/0.4ML SYRINGE (J1650 PER 10MG) SC SCH (09:10)
[2023-03-21 11:52] VITALS: BP 115/65; TEMP 99.3; O2SAT 95
[2023-03-21 16:25] VITALS: BP 113/71; TEMP 98.7; O2SAT 98
[2023-03-21 20:00] VITALS: BP 125/77; TEMP 98.6; O2SAT 98
[2023-03-21] MEDS: PANTOPRAZOLE 40MG VIAL IV SCH (21:59)
[2023-03-21] MEDS: TAMSULOSIN 0.4 MG CAP PO SCH (21:59)
[2023-03-22] VITALS (7 sets, daily range): BP systolic 105–136; BP diastolic 64–92; TEMP 97.3–101.5; O2SAT 96–99
[2023-03-22] MEDS: D5W/0.45% SODIUM CHLORIDE 1,000 ML IV SCH ×4 (04:50→20:57)
[2023-03-22 06:14] LABS: BASO % 0.3 % (0.0-1.0); EOS # 0.2 10^3/uL (0.0-0.5); EOS % 1.9 % (0.0-3.0); HEMATOCRIT 34.9 % (42.0-52.0); HEMOGLOBIN 11.6 g/dl (13.5-17.5); LYMPH # 2.2 10^3/uL (1.5-5.0); LYMPH % 24.3 % (24.0-44.0); MEAN CORPUSCULAR HEMOGLOBIN 28.6 pg (27.0-33.0); MEAN CORPUSCULAR HGB CONC 33.2 g/dl (32.0-36.5); MEAN CORPUSCULAR VOLUME 86.2 fl (80.0-96.0); MONO # 0.9 10^3/uL (0.0-0.8); MONO % 10.1 % (2.0-8.0); NEUTROPHILS # 5.7 10^3/uL (1.5-8.5); NEUTROPHILS % 62.3 % (36.0-66.0); PLATELET COUNT, AUTOMATED 343 10^3/uL (150-450); RED BLOOD COUNT 4.05 10^6/uL (4.30-6.10); WHITE BLOOD COUNT 9.1 10^3/uL (4.0-10.0)
[2023-03-22 06:50] LABS: CPK CREATINE PHOSPHOKINASE 117 U/L (46-171)
[2023-03-22 07:00] LABS: ALBUMIN 2.5 G/DL (3.2-5.2); ALKALINE PHOSPHATASE 59 U/L (46-116); ALT/SGPT 37 U/L (7.0-40); AST/SGOT 27 U/L (<34); BILIRUBIN,TOTAL 0.5 MG/DL (0.3-1.2); BLOOD UREA NITROGEN 7 MG/DL (9-23); CALCIUM LEVEL 8.5 MG/DL (8.5-10.1); CARBON DIOXIDE LEVEL 27 MMOL/L (20-31); CHLORIDE LEVEL 107 MMOL/L (98-107); CREATININE FOR GFR 0.71 MG/DL (0.70-1.30); GLOMERULAR FILTRATION RATE > 60.0 (>60); GLUCOSE, FASTING 96 MG/DL (60-100); POTASSIUM SERUM 4.1 MMOL/L (3.5-5.1); SODIUM LEVEL 141 MMOL/L (136-145); TOTAL PROTEIN 5.3 G/DL (5.7-8.2)
[2023-03-22] MEDS: AUGMENTIN 875 MG TAB PO SCH ×2 (08:49→20:56)
[2023-03-22] MEDS: ENOXAPARIN 40MG/0.4ML SYRINGE (J1650 PER 10MG) SC SCH (08:51)
[2023-03-22] MEDS ORDERED: LIDOCAINE 1% MDV 20ML VIAL As Ordered ONE (10:06)
[2023-03-22] MEDS ORDERED: LORazepam 2 MG TAB PO ONE (10:15)
[2023-03-22] MEDS ORDERED: diphenhydrAMINE 50MG/ML VIAL IV ONE (10:15)
[2023-03-22] MEDS ORDERED: LORazepam 2 MG/ML 1ML VIAL IV SCH ×2 (14:00)
[2023-03-22] MEDS: TAMSULOSIN 0.4 MG CAP PO SCH (20:55)
[2023-03-22] MEDS: PANTOPRAZOLE 40MG VIAL IV SCH (20:56)
[2023-03-22] MEDS: ACETAMINOPHEN 650MG SUPP PR PRN (23:58)
[2023-03-23] VITALS: TEMP 101.1
[2023-03-23] MEDS ORDERED: diphenhydrAMINE 50MG/ML VIAL IV ONE (00:15)
[2023-03-23 00:40] VITALS: TEMP 100.7
[2023-03-23 02:00] VITALS: TEMP 100.2
[2023-03-23] MEDS: D5W/0.45% SODIUM CHLORIDE 1,000 ML IV SCH ×2 (05:58→14:01)
[2023-03-23 06:00] VITALS: BP 143/88; TEMP 99.9; O2SAT 97
[2023-03-23 06:19] LABS: HEMATOCRIT 36.2 % (42.0-52.0); HEMOGLOBIN 11.9 g/dl (13.5-17.5); MEAN CORPUSCULAR HEMOGLOBIN 28.7 pg (27.0-33.0); MEAN CORPUSCULAR HGB CONC 32.9 g/dl (32.0-36.5); MEAN CORPUSCULAR VOLUME 87.4 fl (80.0-96.0); PLATELET COUNT, AUTOMATED 376 10^3/uL (150-450); RED BLOOD COUNT 4.14 10^6/uL (4.30-6.10); WHITE BLOOD COUNT 10.7 10^3/uL (4.0-10.0)
[2023-03-23 06:45] LABS: CPK CREATINE PHOSPHOKINASE 178 U/L (46-171)
[2023-03-23 06:56] LABS: ALBUMIN 2.7 G/DL (3.2-5.2); ALKALINE PHOSPHATASE 60 U/L (46-116); ALT/SGPT 38 U/L (7.0-40); AST/SGOT 29 U/L (<34); BILIRUBIN,TOTAL 0.5 MG/DL (0.3-1.2); BLOOD UREA NITROGEN 5 MG/DL (9-23); CALCIUM LEVEL 8.6 MG/DL (8.5-10.1); CARBON DIOXIDE LEVEL 27 MMOL/L (20-31); CHLORIDE LEVEL 108 MMOL/L (98-107); CREATININE FOR GFR 0.67 MG/DL (0.70-1.30); GLOMERULAR FILTRATION RATE > 60.0 (>60); GLUCOSE, FASTING 94 MG/DL (60-100); POTASSIUM SERUM 4.2 MMOL/L (3.5-5.1); SODIUM LEVEL 143 MMOL/L (136-145); TOTAL PROTEIN 5.6 G/DL (5.7-8.2)
[2023-03-23] MEDS: AUGMENTIN 875 MG TAB PO SCH ×2 (09:07→20:47)
[2023-03-23] MEDS: ENOXAPARIN 40MG/0.4ML SYRINGE (J1650 PER 10MG) SC SCH (09:08)
[2023-03-23 14:00] VITALS: BP 140/88; TEMP 100.5; O2SAT 97
[2023-03-23] MEDS ORDERED: LORazepam 2 MG/ML 1ML VIAL IV SCH (14:00)
[2023-03-23 20:00] VITALS: BP 134/84; TEMP 100.1; O2SAT 97
[2023-03-23] MEDS: PANTOPRAZOLE 40MG VIAL IV SCH (20:47)
[2023-03-23] MEDS: DOXAZOSIN MESYLATE 1 MG TAB PO SCH (23:15)
[2023-03-24] MEDS: D5W/0.45% SODIUM CHLORIDE 1,000 ML IV SCH ×3 (01:06→22:04)
[2023-03-24 06:00] VITALS: BP 134/90; TEMP 101.3; O2SAT 94
[2023-03-24] MEDS: AUGMENTIN 875 MG TAB PO SCH ×3 (08:19→20:47)
[2023-03-24] MEDS: ENOXAPARIN 40MG/0.4ML SYRINGE (J1650 PER 10MG) SC SCH (08:20)
[2023-03-24] MEDS: LORazepam 2 MG/ML 1ML VIAL IV SCH (10:44)
[2023-03-24 14:00] VITALS: BP 138/87; TEMP 100.2; O2SAT 96
[2023-03-24] MEDS: PANTOPRAZOLE 40MG VIAL IV SCH (20:49)
[2023-03-24] MEDS: DOXAZOSIN MESYLATE 1 MG TAB PO SCH (20:49)
[2023-03-24 21:20] VITALS: BP 138/90; TEMP 99.1; O2SAT 98
[2023-03-25 05:20] VITALS: BP 126/69; TEMP 100.5; O2SAT 95
[2023-03-25] MEDS: D5W/0.45% SODIUM CHLORIDE 1,000 ML IV SCH ×2 (06:37→17:09)
[2023-03-25] MEDS ORDERED: SODIUM CHLORIDE 0.9% INJ 10 ML SYR IV PRN (09:00)
[2023-03-25] MEDS: ENOXAPARIN 40MG/0.4ML SYRINGE (J1650 PER 10MG) SC SCH (09:00)
[2023-03-25] MEDS: LORazepam 2 MG/ML 1ML VIAL IV SCH (10:02)
[2023-03-25] MEDS: SODIUM CHLORIDE 0.9% INJ 10 ML SYR IV SCH (10:03)
[2023-03-25] MEDS: AUGMENTIN 875 MG TAB PO SCH ×2 (10:56→20:04)
[2023-03-25 14:00] VITALS: BP 107/71; TEMP 98.2; O2SAT 95
[2023-03-25 18:31] VITALS: TEMP 98.1
[2023-03-25] MEDS: DOXAZOSIN MESYLATE 1 MG TAB PO SCH (20:04)
[2023-03-25] MEDS: PANTOPRAZOLE 40MG VIAL IV SCH (20:04)
[2023-03-25 21:00] VITALS: BP 135/92; TEMP 100; O2SAT 98
[2023-03-26] MEDS: D5W/0.45% SODIUM CHLORIDE 1,000 ML IV SCH ×3 (02:00→22:07)
[2023-03-26 05:10] VITALS: BP 125/88; TEMP 100.6; O2SAT 97
[2023-03-26] MEDS: AUGMENTIN 875 MG TAB PO SCH ×2 (08:05→20:49)
[2023-03-26] MEDS: SODIUM CHLORIDE 0.9% INJ 10 ML SYR IV SCH (08:06)
[2023-03-26] MEDS: LORazepam 2 MG/ML 1ML VIAL IV SCH (10:00)
[2023-03-26 11:32] VITALS: TEMP 100.5
[2023-03-26 12:50] LABS: HEMATOCRIT 35.7 % (42.0-52.0); HEMOGLOBIN 11.8 g/dl (13.5-17.5); MEAN CORPUSCULAR HEMOGLOBIN 28.6 pg (27.0-33.0); MEAN CORPUSCULAR HGB CONC 33.1 g/dl (32.0-36.5); MEAN CORPUSCULAR VOLUME 86.7 fl (80.0-96.0); PLATELET COUNT, AUTOMATED 371 10^3/uL (150-450); RED BLOOD COUNT 4.12 10^6/uL (4.30-6.10); WHITE BLOOD COUNT 14.1 10^3/uL (4.0-10.0)
[2023-03-26 14:00] VITALS: BP 119/80; TEMP 101.4; O2SAT 97
[2023-03-26] MEDS: ENOXAPARIN 40MG/0.4ML SYRINGE (J1650 PER 10MG) SC SCH (14:15)
[2023-03-26] MEDS: ACETAMINOPHEN 650MG SUPP PR PRN ×2 (14:15→21:08)
[2023-03-26] MEDS: DOXAZOSIN MESYLATE 1 MG TAB PO SCH ×2 (20:49→20:52)
[2023-03-26 20:50] VITALS: BP 134/95; TEMP 102.8; O2SAT 98
[2023-03-26] MEDS: PANTOPRAZOLE 40MG VIAL IV SCH (20:50)
[2023-03-26] MEDS ORDERED: KETOROLAC 30 MG/ML 1ML VIAL IV ONE (23:30)
[2023-03-27] VITALS: TEMP 102.4
[2023-03-27 02:25] VITALS: TEMP 100.4
[2023-03-27] MEDS: LORazepam 2 MG/ML 1ML VIAL IV PRN (05:17)
[2023-03-27 05:30] VITALS: BP 129/91; TEMP 101.2; O2SAT 97
[2023-03-27] MEDS: ACETAMINOPHEN 650MG SUPP PR PRN (05:35)
[2023-03-27 06:45] VITALS: TEMP 99.3
[2023-03-27] MEDS: SODIUM CHLORIDE 0.9% INJ 10 ML SYR IV SCH (09:00)
[2023-03-27] MEDS: ENOXAPARIN 40MG/0.4ML SYRINGE (J1650 PER 10MG) SC SCH (09:56)
[2023-03-27] MEDS: D5W/0.45% SODIUM CHLORIDE 1,000 ML IV SCH ×2 (09:57→19:37)
[2023-03-27] MEDS ORDERED: LORazepam 2 MG/ML 1ML VIAL IV STA (11:58)
[2023-03-27] MEDS ORDERED: ISOVUE-370 76% 100ML VIAL As Ordered ONE (12:07)
[2023-03-27 12:26] LABS: BASO % 0.4 % (0.0-1.0); EOS # 0.3 10^3/uL (0.0-0.5); EOS % 2.3 % (0.0-3.0); HEMATOCRIT 33.2 % (42.0-52.0); HEMOGLOBIN 10.8 g/dl (13.5-17.5); LYMPH % 18.1 % (24.0-44.0); MEAN CORPUSCULAR HEMOGLOBIN 28.8 pg (27.0-33.0); MEAN CORPUSCULAR HGB CONC 32.5 g/dl (32.0-36.5); MEAN CORPUSCULAR VOLUME 88.5 fl (80.0-96.0); MONO # 1.1 10^3/uL (0.0-0.8); MONO % 10.1 % (2.0-8.0); NEUTROPHILS # 7.6 10^3/uL (1.5-8.5); NEUTROPHILS % 68.6 % (36.0-66.0); PLATELET COUNT, AUTOMATED 339 10^3/uL (150-450); RED BLOOD COUNT 3.75 10^6/uL (4.30-6.10); WHITE BLOOD COUNT 11.1 10^3/uL (4.0-10.0)
[2023-03-27 12:52] LABS: ALBUMIN 2.4 G/DL (3.2-5.2); ALKALINE PHOSPHATASE 56 U/L (46-116); ALT/SGPT 30 U/L (7.0-40); AST/SGOT 25 U/L (<34); BILIRUBIN,TOTAL 0.5 MG/DL (0.3-1.2); BLOOD UREA NITROGEN 11 MG/DL (9-23); CALCIUM LEVEL 7.9 MG/DL (8.5-10.1); CARBON DIOXIDE LEVEL 27 MMOL/L (20-31); CHLORIDE LEVEL 105 MMOL/L (98-107); CREATININE FOR GFR 0.69 MG/DL (0.70-1.30); GLOMERULAR FILTRATION RATE > 60.0 (>60); GLUCOSE, FASTING 119 MG/DL (60-100); POTASSIUM SERUM 4.1 MMOL/L (3.5-5.1); SODIUM LEVEL 138 MMOL/L (136-145); TOTAL PROTEIN 5.1 G/DL (5.7-8.2)
[2023-03-27 13:00] LABS: ERYTHROCYTE SEDIMENTATION RATE 56 mm/hr (0-15)
[2023-03-27 14:00] VITALS: BP 104/59; TEMP 98.4; O2SAT 97
[2023-03-27] MEDS: VANCOMYCIN HCL 1,000 MG, VIAL MATE ADAPTER 1 EACH in D5W 250 ML IV SCH ×2 (14:08→20:53)
[2023-03-27] MEDS: PANTOPRAZOLE 40MG VIAL IV SCH (20:53)
[2023-03-27] MEDS: DOXAZOSIN MESYLATE 1 MG TAB PO SCH (20:53)
[2023-03-27 21:10] VITALS: BP 131/81; TEMP 99.5; O2SAT 93; O2SAT 96
[2023-03-28] VITALS (7 sets, daily range): BP systolic 93–130; BP diastolic 61–88; TEMP 98.8–102.9; O2SAT 91–97
[2023-03-28] MEDS: VANCOMYCIN HCL 1,000 MG, VIAL MATE ADAPTER 1 EACH in D5W 250 ML IV SCH ×3 (04:58→17:40)
[2023-03-28] MEDS: ACETAMINOPHEN 650MG SUPP PR PRN ×3 (04:59→20:35)
[2023-03-28] MEDS: D5W/0.45% SODIUM CHLORIDE 1,000 ML IV SCH ×2 (05:03→15:36)
[2023-03-28 05:52] LABS: BASO % 0.3 % (0.0-1.0); EOS # 0.2 10^3/uL (0.0-0.5); EOS % 1.4 % (0.0-3.0); HEMATOCRIT 32.4 % (42.0-52.0); HEMOGLOBIN 10.6 g/dl (13.5-17.5); LYMPH # 2.1 10^3/uL (1.5-5.0); LYMPH % 15.5 % (24.0-44.0); MEAN CORPUSCULAR HEMOGLOBIN 28.3 pg (27.0-33.0); MEAN CORPUSCULAR HGB CONC 32.7 g/dl (32.0-36.5); MEAN CORPUSCULAR VOLUME 86.6 fl (80.0-96.0); MONO # 1.3 10^3/uL (0.0-0.8); MONO % 9.4 % (2.0-8.0); NEUTROPHILS # 9.7 10^3/uL (1.5-8.5); NEUTROPHILS % 72.7 % (36.0-66.0); PLATELET COUNT, AUTOMATED 360 10^3/uL (150-450); RED BLOOD COUNT 3.74 10^6/uL (4.30-6.10); WHITE BLOOD COUNT 13.3 10^3/uL (4.0-10.0)
[2023-03-28 06:24] LABS: BLOOD UREA NITROGEN 7 MG/DL (9-23); CALCIUM LEVEL 8.4 MG/DL (8.5-10.1); CARBON DIOXIDE LEVEL 23 MMOL/L (20-31); CHLORIDE LEVEL 105 MMOL/L (98-107); CREATININE FOR GFR 0.67 MG/DL (0.70-1.30); GLOMERULAR FILTRATION RATE > 60.0 (>60); GLUCOSE, FASTING 98 MG/DL (60-100); POTASSIUM SERUM 3.9 MMOL/L (3.5-5.1); SODIUM LEVEL 137 MMOL/L (136-145)
[2023-03-28] MEDS: SODIUM CHLORIDE 0.9% INJ 10 ML SYR IV SCH (09:00)
[2023-03-28] MEDS: ENOXAPARIN 40MG/0.4ML SYRINGE (J1650 PER 10MG) SC SCH (09:31)
[2023-03-28] MEDS: LORazepam 2 MG/ML 1ML VIAL IV PRN (09:41)
[2023-03-28] MEDS: SENOKOT S TAB PO SCH ×2 (12:41→20:18)
[2023-03-28] MEDS: MOM 30ML SUSPENSION UDC PO SCH ×2 (12:41→20:22)
[2023-03-28] MEDS: PIPERACILLIN/TAZOBACTAM SOD 3.375 GM in D5W MINI-BAG PLUS 50 ML IV SCH ×2 (14:58→20:22)
[2023-03-28] MEDS: PANTOPRAZOLE 40MG VIAL IV SCH (20:22)
[2023-03-28] MEDS: DOXAZOSIN MESYLATE 1 MG TAB PO SCH (20:22)
[2023-03-28] MEDS ORDERED: KETOROLAC 30 MG/ML 1ML VIAL IV ONE (22:05)
[2023-03-29] VITALS (9 sets, daily range): BP systolic 142–172; BP diastolic 80–94; TEMP 98.4–101.8; O2SAT 82–99
[2023-03-29] MEDS: PIPERACILLIN/TAZOBACTAM SOD 3.375 GM in D5W MINI-BAG PLUS 50 ML IV SCH ×4 (01:00→20:27)
[2023-03-29] MEDS: VANCOMYCIN HCL 1,000 MG, VIAL MATE ADAPTER 1 EACH in D5W 250 ML IV SCH ×3 (02:07→17:35)
[2023-03-29] MEDS: D5W/0.45% SODIUM CHLORIDE 1,000 ML IV SCH ×3 (04:46→20:27)
[2023-03-29] MEDS: ACETAMINOPHEN 650MG SUPP PR PRN (05:16)
[2023-03-29] MEDS: SENOKOT S TAB PO SCH ×2 (09:00→20:39)
[2023-03-29] MEDS: SODIUM CHLORIDE 0.9% INJ 10 ML SYR IV SCH (09:00)
[2023-03-29] MEDS: ENOXAPARIN 40MG/0.4ML SYRINGE (J1650 PER 10MG) SC SCH (09:00)
[2023-03-29 09:13] LABS: BASO # 0.1 10^3/uL (0.0-0.2); BASO % 0.4 % (0.0-1.0); EOS # 0.4 10^3/uL (0.0-0.5); EOS % 3.3 % (0.0-3.0); HEMATOCRIT 33.8 % (42.0-52.0); HEMOGLOBIN 10.8 g/dl (13.5-17.5); LYMPH # 2.1 10^3/uL (1.5-5.0); LYMPH % 17.7 % (24.0-44.0); MEAN CORPUSCULAR VOLUME 87.6 fl (80.0-96.0); MONO % 8.5 % (2.0-8.0); NEUTROPHILS # 8.1 10^3/uL (1.5-8.5); NEUTROPHILS % 69.4 % (36.0-66.0); PLATELET COUNT, AUTOMATED 400 10^3/uL (150-450); RED BLOOD COUNT 3.86 10^6/uL (4.30-6.10); WHITE BLOOD COUNT 11.7 10^3/uL (4.0-10.0)
[2023-03-29 09:38] LABS: BLOOD UREA NITROGEN 10 MG/DL (9-23); CALCIUM LEVEL 8.6 MG/DL (8.5-10.1); CARBON DIOXIDE LEVEL 23 MMOL/L (20-31); CHLORIDE LEVEL 108 MMOL/L (98-107); CREATININE FOR GFR 0.79 MG/DL (0.70-1.30); GLOMERULAR FILTRATION RATE > 60.0 (>60); GLUCOSE, FASTING 102 MG/DL (60-100); POTASSIUM SERUM 4.1 MMOL/L (3.5-5.1); SODIUM LEVEL 140 MMOL/L (136-145)
[2023-03-29] MEDS: MOM 30ML SUSPENSION UDC PO SCH ×2 (09:40→20:39)
[2023-03-29 11:50] LABS: MRSA PCR SCREEN NOT DETECTED (NEGATIVE)
[2023-03-29 15:32] LABS: BASO % 0.4 % (0.0-1.0); EOS # 0.3 10^3/uL (0.0-0.5); EOS % 2.8 % (0.0-3.0); HEMATOCRIT 33.7 % (42.0-52.0); HEMOGLOBIN 10.9 g/dl (13.5-17.5); LYMPH # 1.7 10^3/uL (1.5-5.0); LYMPH % 17.5 % (24.0-44.0); MEAN CORPUSCULAR HEMOGLOBIN 28.5 pg (27.0-33.0); MEAN CORPUSCULAR HGB CONC 32.3 g/dl (32.0-36.5); MONO # 0.8 10^3/uL (0.0-0.8); MONO % 7.6 % (2.0-8.0); NEUTROPHILS # 7.1 10^3/uL (1.5-8.5); PLATELET COUNT, AUTOMATED 385 10^3/uL (150-450); RED BLOOD COUNT 3.83 10^6/uL (4.30-6.10)
[2023-03-29] MEDS: PANTOPRAZOLE 40MG VIAL IV SCH (20:39)
[2023-03-29] MEDS: DOXAZOSIN MESYLATE 1 MG TAB PO SCH (20:39)
[2023-03-29] MEDS: ACETAMINOPHEN TAB 650MG DOSE (2X325MG) PO PRN (20:40)
[2023-03-30] VITALS (8 sets, daily range): BP systolic 92–160; BP diastolic 58–90; TEMP 96.9–101; O2SAT 95–98
[2023-03-30] MEDS: VANCOMYCIN HCL 1,000 MG, VIAL MATE ADAPTER 1 EACH in D5W 250 ML IV SCH ×3 (01:35→18:48)
[2023-03-30] MEDS: PIPERACILLIN/TAZOBACTAM SOD 3.375 GM in D5W MINI-BAG PLUS 50 ML IV SCH ×4 (03:08→21:53)
[2023-03-30 07:37] LABS: BASO # 0.1 10^3/uL (0.0-0.2); BASO % 0.4 % (0.0-1.0); EOS # 0.3 10^3/uL (0.0-0.5); EOS % 2.6 % (0.0-3.0); HEMATOCRIT 32.6 % (42.0-52.0); HEMOGLOBIN 10.6 g/dl (13.5-17.5); LYMPH # 2.2 10^3/uL (1.5-5.0); LYMPH % 16.7 % (24.0-44.0); MEAN CORPUSCULAR HEMOGLOBIN 28.4 pg (27.0-33.0); MEAN CORPUSCULAR HGB CONC 32.5 g/dl (32.0-36.5); MEAN CORPUSCULAR VOLUME 87.4 fl (80.0-96.0); MONO # 1.3 10^3/uL (0.0-0.8); MONO % 9.9 % (2.0-8.0); NEUTROPHILS % 69.9 % (36.0-66.0); PLATELET COUNT, AUTOMATED 448 10^3/uL (150-450); RED BLOOD COUNT 3.73 10^6/uL (4.30-6.10); WHITE BLOOD COUNT 12.9 10^3/uL (4.0-10.0)
[2023-03-30 08:00] LABS: BLOOD UREA NITROGEN 11 MG/DL (9-23); CALCIUM LEVEL 8.6 MG/DL (8.5-10.1); CARBON DIOXIDE LEVEL 23 MMOL/L (20-31); CHLORIDE LEVEL 107 MMOL/L (98-107); CREATININE FOR GFR 0.73 MG/DL (0.70-1.30); GLOMERULAR FILTRATION RATE > 60.0 (>60); GLUCOSE, FASTING 85 MG/DL (60-100); SODIUM LEVEL 142 MMOL/L (136-145)
[2023-03-30] MEDS: D5W/0.45% SODIUM CHLORIDE 1,000 ML IV SCH ×2 (08:54→18:48)
[2023-03-30] MEDS: MOM 30ML SUSPENSION UDC PO SCH ×2 (08:55→21:54)
[2023-03-30] MEDS: ENOXAPARIN 40MG/0.4ML SYRINGE (J1650 PER 10MG) SC SCH (08:55)
[2023-03-30] MEDS: SENOKOT S TAB PO SCH ×2 (08:55→21:54)
[2023-03-30] MEDS: ACETAMINOPHEN TAB 650MG DOSE (2X325MG) PO PRN (18:51)
[2023-03-30] MEDS ORDERED: DOXYCYCLINE HYCLATE 100MG TABLET PO ONE (20:30)
[2023-03-30] MEDS: DOXAZOSIN MESYLATE 1 MG TAB PO SCH (21:53)
[2023-03-30] MEDS: PANTOPRAZOLE 40MG VIAL IV SCH (21:54)
[2023-03-31] VITALS (7 sets, daily range): BP systolic 97–134; BP diastolic 65–95; TEMP 98.9–100.3; O2SAT 95–98
[2023-03-31] MEDS: VANCOMYCIN HCL 1,000 MG, VIAL MATE ADAPTER 1 EACH in D5W 250 ML IV SCH ×2 (01:34→11:26)
[2023-03-31] MEDS: PIPERACILLIN/TAZOBACTAM SOD 3.375 GM in D5W MINI-BAG PLUS 50 ML IV SCH ×4 (02:58→21:18)
[2023-03-31] MEDS: D5W/0.45% SODIUM CHLORIDE 1,000 ML IV SCH ×3 (05:59→21:18)
[2023-03-31 07:29] LABS: BASO % 0.3 % (0.0-1.0); EOS # 0.5 10^3/uL (0.0-0.5); EOS % 4.1 % (0.0-3.0); HEMATOCRIT 32.6 % (42.0-52.0); HEMOGLOBIN 10.7 g/dl (13.5-17.5); LYMPH # 2.1 10^3/uL (1.5-5.0); LYMPH % 17.6 % (24.0-44.0); MEAN CORPUSCULAR HEMOGLOBIN 28.2 pg (27.0-33.0); MEAN CORPUSCULAR HGB CONC 32.8 g/dl (32.0-36.5); MONO # 1.1 10^3/uL (0.0-0.8); MONO % 8.8 % (2.0-8.0); NEUTROPHILS # 8.3 10^3/uL (1.5-8.5); NEUTROPHILS % 68.5 % (36.0-66.0); PLATELET COUNT, AUTOMATED 495 10^3/uL (150-450); RED BLOOD COUNT 3.79 10^6/uL (4.30-6.10); WHITE BLOOD COUNT 12.1 10^3/uL (4.0-10.0)
[2023-03-31 07:56] LABS: ALBUMIN 2.8 G/DL (3.2-5.2); ALKALINE PHOSPHATASE 66 U/L (46-116); ALT/SGPT 36 U/L (7.0-40); AST/SGOT 53 U/L (<34); BILIRUBIN,TOTAL 0.5 MG/DL (0.3-1.2); BLOOD UREA NITROGEN 11 MG/DL (9-23); CALCIUM LEVEL 8.2 MG/DL (8.5-10.1); CARBON DIOXIDE LEVEL 23 MMOL/L (20-31); CHLORIDE LEVEL 107 MMOL/L (98-107); CREATININE FOR GFR 0.78 MG/DL (0.70-1.30); GLOMERULAR FILTRATION RATE > 60.0 (>60); GLUCOSE, FASTING 98 MG/DL (60-100); POTASSIUM SERUM 4.3 MMOL/L (3.5-5.1); SODIUM LEVEL 141 MMOL/L (136-145); TOTAL PROTEIN 5.8 G/DL (5.7-8.2)
[2023-03-31] MEDS: MOM 30ML SUSPENSION UDC PO SCH ×2 (08:53→21:20)
[2023-03-31] MEDS: SENOKOT S TAB PO SCH ×2 (08:53→21:20)
[2023-03-31] MEDS: ENOXAPARIN 40MG/0.4ML SYRINGE (J1650 PER 10MG) SC SCH (08:54)
[2023-03-31 15:27] LABS: LDH LACTATE DEHYDROGENASE 283 U/L (120-246)
[2023-03-31 15:28] LABS: RHEUMATOID FACTOR QUANT 4.4 IU/ML (<14)
[2023-03-31 15:48] LABS: HEPATITIS B SURFACE ANTIGEN NEGATIVE (NEGATIVE)
[2023-03-31 16:01] LABS: HIV 1&2 SCREEN NEGATIVE (NEGATIVE)
[2023-03-31 16:09] LABS: HEPATITIS B CORE ANTIBODY IGM NEGATIVE (NEGATIVE); HEPATITIS C VIRUS ABY INDEX 0.1 INDEX (<0.8)
[2023-03-31] MEDS: DOXAZOSIN MESYLATE 1 MG TAB PO SCH (21:21)
[2023-04-01] MEDS: PIPERACILLIN/TAZOBACTAM SOD 3.375 GM in D5W MINI-BAG PLUS 50 ML IV SCH ×4 (02:30→20:07)
[2023-04-01] MEDS: D5W/0.45% SODIUM CHLORIDE 1,000 ML IV SCH ×3 (05:58→14:53)
[2023-04-01 05:59] LABS: BASO # 0.1 10^3/uL (0.0-0.2); BASO % 0.7 % (0.0-1.0); EOS # 0.5 10^3/uL (0.0-0.5); EOS % 7.7 % (0.0-3.0); HEMATOCRIT 30.8 % (42.0-52.0); LYMPH # 1.9 10^3/uL (1.5-5.0); LYMPH % 28.9 % (24.0-44.0); MEAN CORPUSCULAR HEMOGLOBIN 28.4 pg (27.0-33.0); MEAN CORPUSCULAR HGB CONC 32.5 g/dl (32.0-36.5); MEAN CORPUSCULAR VOLUME 87.5 fl (80.0-96.0); MONO # 0.8 10^3/uL (0.0-0.8); MONO % 12.4 % (2.0-8.0); NEUTROPHILS # 3.3 10^3/uL (1.5-8.5); NEUTROPHILS % 49.4 % (36.0-66.0); PLATELET COUNT, AUTOMATED 408 10^3/uL (150-450); RED BLOOD COUNT 3.52 10^6/uL (4.30-6.10); WHITE BLOOD COUNT 6.7 10^3/uL (4.0-10.0)
[2023-04-01 06:00] VITALS: BP 127/82; TEMP 98.2; O2SAT 95
[2023-04-01 06:36] LABS: ALBUMIN 2.3 G/DL (3.2-5.2); ALKALINE PHOSPHATASE 54 U/L (46-116); ALT/SGPT 31 U/L (7.0-40); AST/SGOT 40 U/L (<34); BILIRUBIN,TOTAL 0.3 MG/DL (0.3-1.2); BLOOD UREA NITROGEN 9 MG/DL (9-23); CALCIUM LEVEL 7.9 MG/DL (8.5-10.1); CARBON DIOXIDE LEVEL 24 MMOL/L (20-31); CHLORIDE LEVEL 109 MMOL/L (98-107); CREATININE FOR GFR 0.84 MG/DL (0.70-1.30); GLOMERULAR FILTRATION RATE > 60.0 (>60); GLUCOSE, FASTING 119 MG/DL (60-100); POTASSIUM SERUM 3.9 MMOL/L (3.5-5.1); SODIUM LEVEL 141 MMOL/L (136-145); TOTAL PROTEIN 4.9 G/DL (5.7-8.2)
[2023-04-01] MEDS: PANTOPRAZOLE 40MG TAB (PROTONIX) PO SCH (09:07)
[2023-04-01] MEDS: SENOKOT S TAB PO SCH ×2 (09:07→20:09)
[2023-04-01] MEDS: MOM 30ML SUSPENSION UDC PO SCH ×2 (09:07→20:08)
[2023-04-01] MEDS: ENOXAPARIN 40MG/0.4ML SYRINGE (J1650 PER 10MG) SC SCH (09:09)
[2023-04-01 10:00] VITALS: BP 121/76; TEMP 98.1; O2SAT 96
[2023-04-01 14:00] VITALS: BP 119/76; TEMP 99; O2SAT 97
[2023-04-01] MEDS: DOXAZOSIN MESYLATE 1 MG TAB PO SCH (20:09)
[2023-04-01 20:35] VITALS: BP 120/70; TEMP 100.4; O2SAT 96
[2023-04-02] MEDS: D5W/0.45% SODIUM CHLORIDE 1,000 ML IV SCH ×3 (01:17→19:42)
[2023-04-02 02:00] VITALS: BP 126/91; TEMP 98.7; O2SAT 98
[2023-04-02] MEDS: PIPERACILLIN/TAZOBACTAM SOD 3.375 GM in D5W MINI-BAG PLUS 50 ML IV SCH ×4 (02:09→20:29)
[2023-04-02 06:00] VITALS: BP 109/78; TEMP 98.5; O2SAT 98
[2023-04-02 06:08] LABS: BASO # 0.1 10^3/uL (0.0-0.2); BASO % 0.5 % (0.0-1.0); EOS # 0.4 10^3/uL (0.0-0.5); EOS % 4.2 % (0.0-3.0); HEMATOCRIT 32.7 % (42.0-52.0); HEMOGLOBIN 10.5 g/dl (13.5-17.5); LYMPH # 2.3 10^3/uL (1.5-5.0); LYMPH % 24.6 % (24.0-44.0); MEAN CORPUSCULAR HEMOGLOBIN 28.2 pg (27.0-33.0); MEAN CORPUSCULAR HGB CONC 32.1 g/dl (32.0-36.5); MEAN CORPUSCULAR VOLUME 87.9 fl (80.0-96.0); MONO % 10.2 % (2.0-8.0); NEUTROPHILS # 5.5 10^3/uL (1.5-8.5); NEUTROPHILS % 59.7 % (36.0-66.0); PLATELET COUNT, AUTOMATED 471 10^3/uL (150-450); RED BLOOD COUNT 3.72 10^6/uL (4.30-6.10); WHITE BLOOD COUNT 9.3 10^3/uL (4.0-10.0)
[2023-04-02 06:35] LABS: ALBUMIN 2.5 G/DL (3.2-5.2); ALKALINE PHOSPHATASE 60 U/L (46-116); ALT/SGPT 35 U/L (7.0-40); AST/SGOT 40 U/L (<34); BILIRUBIN,TOTAL 0.3 MG/DL (0.3-1.2); BLOOD UREA NITROGEN 6 MG/DL (9-23); CALCIUM LEVEL 8.2 MG/DL (8.5-10.1); CARBON DIOXIDE LEVEL 26 MMOL/L (20-31); CHLORIDE LEVEL 108 MMOL/L (98-107); CREATININE FOR GFR 0.81 MG/DL (0.70-1.30); GLOMERULAR FILTRATION RATE > 60.0 (>60); GLUCOSE, FASTING 93 MG/DL (60-100); POTASSIUM SERUM 4.1 MMOL/L (3.5-5.1); SODIUM LEVEL 142 MMOL/L (136-145); TOTAL PROTEIN 5.4 G/DL (5.7-8.2)
[2023-04-02] MEDS: MOM 30ML SUSPENSION UDC PO SCH ×2 (08:33→20:29)
[2023-04-02] MEDS: PANTOPRAZOLE 40MG TAB (PROTONIX) PO SCH (08:33)
[2023-04-02] MEDS: SENOKOT S TAB PO SCH ×2 (08:33→20:29)
[2023-04-02] MEDS: ENOXAPARIN 40MG/0.4ML SYRINGE (J1650 PER 10MG) SC SCH (08:35)
[2023-04-02 10:00] VITALS: BP 109/76; TEMP 98.8; O2SAT 97
[2023-04-02 12:09] LABS: CLOZAPINE 1 1435 ng/mL (350-600); CLOZAPINE 2 451 ng/mL (Not Estab.); CLOZAPINE 3 1886 ng/mL (.)
[2023-04-02 14:00] VITALS: BP 113/81; TEMP 98.4; O2SAT 98
[2023-04-02 18:00] VITALS: BP 113/81; TEMP 98.8; O2SAT 97
[2023-04-02 20:05] VITALS: BP 131/92; TEMP 99.3; O2SAT 96
[2023-04-02] MEDS: DOXAZOSIN MESYLATE 1 MG TAB PO SCH (20:29)
[2023-04-03] MEDS: PIPERACILLIN/TAZOBACTAM SOD 3.375 GM in D5W MINI-BAG PLUS 50 ML IV SCH ×4 (02:44→21:32)
[2023-04-03] MEDS: D5W/0.45% SODIUM CHLORIDE 1,000 ML IV SCH (05:06)
[2023-04-03 05:38] VITALS: BP 134/90; TEMP 99; O2SAT 99
[2023-04-03 06:22] LABS: BASO % 0.2 % (0.0-1.0); EOS # 0.2 10^3/uL (0.0-0.5); EOS % 2.2 % (0.0-3.0); HEMATOCRIT 33.1 % (42.0-52.0); HEMOGLOBIN 10.7 g/dl (13.5-17.5); LYMPH # 1.5 10^3/uL (1.5-5.0); LYMPH % 15.4 % (24.0-44.0); MEAN CORPUSCULAR HEMOGLOBIN 28.6 pg (27.0-33.0); MEAN CORPUSCULAR HGB CONC 32.3 g/dl (32.0-36.5); MEAN CORPUSCULAR VOLUME 88.5 fl (80.0-96.0); MONO # 0.9 10^3/uL (0.0-0.8); NEUTROPHILS # 7.1 10^3/uL (1.5-8.5); NEUTROPHILS % 71.8 % (36.0-66.0); PLATELET COUNT, AUTOMATED 487 10^3/uL (150-450); RED BLOOD COUNT 3.74 10^6/uL (4.30-6.10); WHITE BLOOD COUNT 9.9 10^3/uL (4.0-10.0)
[2023-04-03 06:54] LABS: ALBUMIN 2.6 G/DL (3.2-5.2); ALKALINE PHOSPHATASE 66 U/L (46-116); ALT/SGPT 47 U/L (7.0-40); AST/SGOT 45 U/L (<34); BILIRUBIN,TOTAL 0.3 MG/DL (0.3-1.2); BLOOD UREA NITROGEN 7 MG/DL (9-23); CARBON DIOXIDE LEVEL 27 MMOL/L (20-31); CHLORIDE LEVEL 107 MMOL/L (98-107); CREATININE FOR GFR 0.74 MG/DL (0.70-1.30); GLOMERULAR FILTRATION RATE > 60.0 (>60); GLUCOSE, FASTING 129 MG/DL (60-100); POTASSIUM SERUM 4.3 MMOL/L (3.5-5.1); SODIUM LEVEL 139 MMOL/L (136-145); TOTAL PROTEIN 5.6 G/DL (5.7-8.2)
[2023-04-03] MEDS: MOM 30ML SUSPENSION UDC PO SCH ×2 (08:47→21:32)
[2023-04-03] MEDS: ENOXAPARIN 40MG/0.4ML SYRINGE (J1650 PER 10MG) SC SCH (08:47)
[2023-04-03] MEDS: PANTOPRAZOLE 40MG TAB (PROTONIX) PO SCH (08:48)
[2023-04-03] MEDS: SENOKOT S TAB PO SCH ×2 (08:48→21:32)
[2023-04-03 14:00] VITALS: BP 116/75; TEMP 99; O2SAT 97
[2023-04-03 20:33] VITALS: BP 118/75; TEMP 100.3; O2SAT 95
[2023-04-03] MEDS: RAMELTEON 8 MG TAB (ROZEREM) PO SCH (21:32)
[2023-04-03] MEDS: ACETAMINOPHEN TAB 650MG DOSE (2X325MG) PO PRN (21:33)
[2023-04-03] MEDS: DOXAZOSIN MESYLATE 1 MG TAB PO SCH (21:34)
[2023-04-03 23:00] VITALS: BP 102/54; TEMP 99.1; O2SAT 96
[2023-04-04] MEDS: PIPERACILLIN/TAZOBACTAM SOD 3.375 GM in D5W MINI-BAG PLUS 50 ML IV SCH ×2 (02:30→09:43)
[2023-04-04 05:33] VITALS: BP 141/83; TEMP 97.1; O2SAT 96
[2023-04-04 06:20] LABS: HEMATOCRIT 34.2 % (42.0-52.0); HEMOGLOBIN 10.9 g/dl (13.5-17.5); MEAN CORPUSCULAR HEMOGLOBIN 28.6 pg (27.0-33.0); MEAN CORPUSCULAR HGB CONC 31.9 g/dl (32.0-36.5); MEAN CORPUSCULAR VOLUME 89.8 fl (80.0-96.0); PLATELET COUNT, AUTOMATED 517 10^3/uL (150-450); RED BLOOD COUNT 3.81 10^6/uL (4.30-6.10); WHITE BLOOD COUNT 9.2 10^3/uL (4.0-10.0)
[2023-04-04 06:54] LABS: ALBUMIN 2.6 G/DL (3.2-5.2); ALKALINE PHOSPHATASE 65 U/L (46-116); ALT/SGPT 50 U/L (7.0-40); AST/SGOT 37 U/L (<34); BILIRUBIN,TOTAL 0.2 MG/DL (0.3-1.2); BLOOD UREA NITROGEN 11 MG/DL (9-23); CALCIUM LEVEL 8.3 MG/DL (8.5-10.1); CARBON DIOXIDE LEVEL 29 MMOL/L (20-31); CHLORIDE LEVEL 106 MMOL/L (98-107); CREATININE FOR GFR 0.79 MG/DL (0.70-1.30); GLOMERULAR FILTRATION RATE > 60.0 (>60); GLUCOSE, FASTING 101 MG/DL (60-100); POTASSIUM SERUM 4.6 MMOL/L (3.5-5.1); SODIUM LEVEL 140 MMOL/L (136-145); TOTAL PROTEIN 5.7 G/DL (5.7-8.2)
[2023-04-04] MEDS: MOM 30ML SUSPENSION UDC PO SCH ×2 (09:43→20:59)
[2023-04-04] MEDS: ENOXAPARIN 40MG/0.4ML SYRINGE (J1650 PER 10MG) SC SCH (09:45)
[2023-04-04] MEDS: SENOKOT S TAB PO SCH ×2 (09:46→20:58)
[2023-04-04] MEDS: PANTOPRAZOLE 40MG TAB (PROTONIX) PO SCH (09:46)
[2023-04-04 14:00] VITALS: BP 125/81; TEMP 98.8; TEMP 99.3; O2SAT 96
[2023-04-04] MEDS: DOXAZOSIN MESYLATE 1 MG TAB PO SCH (20:58)
[2023-04-04] MEDS: RAMELTEON 8 MG TAB (ROZEREM) PO SCH (20:58)
[2023-04-04 22:00] VITALS: BP 122/79; TEMP 99.1; O2SAT 96
[2023-04-05 06:00] VITALS: BP 119/77; TEMP 98.2; O2SAT 98
[2023-04-05 06:12] LABS: BASO # 0.1 10^3/uL (0.0-0.2); BASO % 0.8 % (0.0-1.0); EOS # 0.2 10^3/uL (0.0-0.5); EOS % 2.5 % (0.0-3.0); HEMATOCRIT 36.2 % (42.0-52.0); HEMOGLOBIN 11.4 g/dl (13.5-17.5); LYMPH # 2.3 10^3/uL (1.5-5.0); LYMPH % 25.5 % (24.0-44.0); MEAN CORPUSCULAR HGB CONC 31.5 g/dl (32.0-36.5); MEAN CORPUSCULAR VOLUME 88.9 fl (80.0-96.0); MONO % 11.1 % (2.0-8.0); NEUTROPHILS # 5.2 10^3/uL (1.5-8.5); NEUTROPHILS % 57.7 % (36.0-66.0); PLATELET COUNT, AUTOMATED 518 10^3/uL (150-450); RED BLOOD COUNT 4.07 10^6/uL (4.30-6.10)
[2023-04-05 06:40] LABS: ALBUMIN 2.8 G/DL (3.2-5.2); ALKALINE PHOSPHATASE 73 U/L (46-116); ALT/SGPT 58 U/L (7.0-40); AST/SGOT 47 U/L (<34); BILIRUBIN,TOTAL 0.2 MG/DL (0.3-1.2); BLOOD UREA NITROGEN 13 MG/DL (9-23); CALCIUM LEVEL 8.7 MG/DL (8.5-10.1); CARBON DIOXIDE LEVEL 29 MMOL/L (20-31); CHLORIDE LEVEL 105 MMOL/L (98-107); CREATININE FOR GFR 0.72 MG/DL (0.70-1.30); GLOMERULAR FILTRATION RATE > 60.0 (>60); GLUCOSE, FASTING 99 MG/DL (60-100); POTASSIUM SERUM 4.9 MMOL/L (3.5-5.1); SODIUM LEVEL 140 MMOL/L (136-145)
[2023-04-05] MEDS: SENOKOT S TAB PO SCH ×2 (08:35→20:57)
[2023-04-05] MEDS: PANTOPRAZOLE 40MG TAB (PROTONIX) PO SCH (08:35)
[2023-04-05] MEDS: MOM 30ML SUSPENSION UDC PO SCH ×2 (08:35→21:01)
[2023-04-05] MEDS: ENOXAPARIN 40MG/0.4ML SYRINGE (J1650 PER 10MG) SC SCH (08:35)
[2023-04-05 14:00] VITALS: BP 133/89; TEMP 98.2; O2SAT 95
[2023-04-05] MEDS: RAMELTEON 8 MG TAB (ROZEREM) PO SCH (20:57)
[2023-04-05] MEDS: DOXAZOSIN MESYLATE 1 MG TAB PO SCH (21:00)
[2023-04-05 21:03] VITALS: BP 134/91; TEMP 99.3; O2SAT 96
[2023-04-06] MEDS: ACETAMINOPHEN TAB 650MG DOSE (2X325MG) PO PRN (01:45)
[2023-04-06 05:21] VITALS: BP 123/85; TEMP 97.7; O2SAT 98
[2023-04-06 06:39] LABS: HEMATOCRIT 37.5 % (42.0-52.0); HEMOGLOBIN 11.9 g/dl (13.5-17.5); MEAN CORPUSCULAR HEMOGLOBIN 28.4 pg (27.0-33.0); MEAN CORPUSCULAR HGB CONC 31.7 g/dl (32.0-36.5); MEAN CORPUSCULAR VOLUME 89.5 fl (80.0-96.0); PLATELET COUNT, AUTOMATED 567 10^3/uL (150-450); RED BLOOD COUNT 4.19 10^6/uL (4.30-6.10); WHITE BLOOD COUNT 10.2 10^3/uL (4.0-10.0)
[2023-04-06 07:05] LABS: ALKALINE PHOSPHATASE 75 U/L (46-116); ALT/SGPT 59 U/L (7.0-40); AST/SGOT 40 U/L (<34); BILIRUBIN,TOTAL 0.2 MG/DL (0.3-1.2); BLOOD UREA NITROGEN 17 MG/DL (9-23); CALCIUM LEVEL 9.4 MG/DL (8.5-10.1); CARBON DIOXIDE LEVEL 30 MMOL/L (20-31); CHLORIDE LEVEL 104 MMOL/L (98-107); CREATININE FOR GFR 0.78 MG/DL (0.70-1.30); GLOMERULAR FILTRATION RATE > 60.0 (>60); GLUCOSE, FASTING 99 MG/DL (60-100); POTASSIUM SERUM 5.1 MMOL/L (3.5-5.1); SODIUM LEVEL 141 MMOL/L (136-145)
[2023-04-06] MEDS: PANTOPRAZOLE 40MG TAB (PROTONIX) PO SCH (08:55)
[2023-04-06] MEDS: ENOXAPARIN 40MG/0.4ML SYRINGE (J1650 PER 10MG) SC SCH (08:55)
[2023-04-06] MEDS: MOM 30ML SUSPENSION UDC PO SCH ×2 (08:55→21:00)
[2023-04-06] MEDS: SENOKOT S TAB PO SCH ×2 (08:55→21:00)
[2023-04-06 14:00] VITALS: BP 126/84; TEMP 99.2; O2SAT 96
[2023-04-06 20:07] VITALS: BP 127/76; TEMP 99.1; O2SAT 97
[2023-04-06] MEDS: RAMELTEON 8 MG TAB (ROZEREM) PO SCH (21:29)
[2023-04-06] MEDS: DOXAZOSIN MESYLATE 1 MG TAB PO SCH (21:32)
[2023-04-06 22:00] VITALS: BP 126/84
[2023-04-07 06:00] VITALS: BP 125/75; TEMP 98.6; O2SAT 96
[2023-04-07 06:37] LABS: HEMATOCRIT 33.9 % (42.0-52.0); MEAN CORPUSCULAR HEMOGLOBIN 28.6 pg (27.0-33.0); MEAN CORPUSCULAR HGB CONC 32.4 g/dl (32.0-36.5); MEAN CORPUSCULAR VOLUME 88.1 fl (80.0-96.0); PLATELET COUNT, AUTOMATED 548 10^3/uL (150-450); RED BLOOD COUNT 3.85 10^6/uL (4.30-6.10); WHITE BLOOD COUNT 13.4 10^3/uL (4.0-10.0)
[2023-04-07 06:51] LABS: ALBUMIN 2.7 G/DL (3.2-5.2); ALKALINE PHOSPHATASE 68 U/L (46-116); ALT/SGPT 42 U/L (7.0-40); AST/SGOT 28 U/L (<34); BILIRUBIN,TOTAL 0.2 MG/DL (0.3-1.2); BLOOD UREA NITROGEN 18 MG/DL (9-23); CALCIUM LEVEL 8.7 MG/DL (8.5-10.1); CARBON DIOXIDE LEVEL 29 MMOL/L (20-31); CHLORIDE LEVEL 105 MMOL/L (98-107); CREATININE FOR GFR 0.84 MG/DL (0.70-1.30); GLOMERULAR FILTRATION RATE > 60.0 (>60); GLUCOSE, FASTING 96 MG/DL (60-100); POTASSIUM SERUM 4.8 MMOL/L (3.5-5.1); SODIUM LEVEL 139 MMOL/L (136-145); TOTAL PROTEIN 5.7 G/DL (5.7-8.2)
[2023-04-07] MEDS: SENOKOT S TAB PO SCH ×2 (07:26→20:33)
[2023-04-07] MEDS: MOM 30ML SUSPENSION UDC PO SCH ×2 (07:26→20:32)
[2023-04-07] MEDS: PANTOPRAZOLE 40MG TAB (PROTONIX) PO SCH (08:58)
[2023-04-07] MEDS: ENOXAPARIN 40MG/0.4ML SYRINGE (J1650 PER 10MG) SC SCH (08:59)
[2023-04-07 14:00] VITALS: BP 129/79; TEMP 99.3; O2SAT 98
[2023-04-07 15:08] LABS: CLOZAPINE 1 523 ng/mL (350-600); CLOZAPINE 2 212 ng/mL (Not Estab.); CLOZAPINE 3 735 ng/mL (.)
[2023-04-07] MEDS: RAMELTEON 8 MG TAB (ROZEREM) PO SCH (20:33)
[2023-04-07] MEDS: TAMSULOSIN 0.4 MG CAP PO SCH (20:33)
[2023-04-07] MEDS: DOXAZOSIN MESYLATE 1 MG TAB PO SCH (20:37)
[2023-04-07 20:49] VITALS: BP 131/82; TEMP 99; O2SAT 97
[2023-04-08] MEDS: QUEtiapine FUMARATE 25 MG TAB PO PRN (00:04)
[2023-04-08 06:00] VITALS: BP 130/84; TEMP 98.2; O2SAT 97
[2023-04-08 06:14] LABS: HEMATOCRIT 35.8 % (42.0-52.0); HEMOGLOBIN 11.3 g/dl (13.5-17.5); MEAN CORPUSCULAR HEMOGLOBIN 28.5 pg (27.0-33.0); MEAN CORPUSCULAR HGB CONC 31.6 g/dl (32.0-36.5); MEAN CORPUSCULAR VOLUME 90.2 fl (80.0-96.0); PLATELET COUNT, AUTOMATED 470 10^3/uL (150-450); RED BLOOD COUNT 3.97 10^6/uL (4.30-6.10); WHITE BLOOD COUNT 8.6 10^3/uL (4.0-10.0)
[2023-04-08 06:38] LABS: ALBUMIN 2.8 G/DL (3.2-5.2); ALKALINE PHOSPHATASE 68 U/L (46-116); ALT/SGPT 38 U/L (7.0-40); AST/SGOT 24 U/L (<34); BILIRUBIN,TOTAL 0.3 MG/DL (0.3-1.2); BLOOD UREA NITROGEN 16 MG/DL (9-23); CALCIUM LEVEL 8.7 MG/DL (8.5-10.1); CARBON DIOXIDE LEVEL 31 MMOL/L (20-31); CHLORIDE LEVEL 105 MMOL/L (98-107); CREATININE FOR GFR 0.75 MG/DL (0.70-1.30); GLOMERULAR FILTRATION RATE > 60.0 (>60); GLUCOSE, FASTING 87 MG/DL (60-100); POTASSIUM SERUM 4.6 MMOL/L (3.5-5.1); SODIUM LEVEL 141 MMOL/L (136-145); TOTAL PROTEIN 5.8 G/DL (5.7-8.2)
[2023-04-08] MEDS: MOM 30ML SUSPENSION UDC PO SCH ×2 (09:00→21:00)
[2023-04-08] MEDS: SENOKOT S TAB PO SCH ×2 (09:00→21:00)
[2023-04-08] MEDS: ENOXAPARIN 40MG/0.4ML SYRINGE (J1650 PER 10MG) SC SCH (10:52)
[2023-04-08] MEDS: PANTOPRAZOLE 40MG TAB (PROTONIX) PO SCH (10:53)
[2023-04-08 18:48] VITALS: BP 123/84; TEMP 100.6; O2SAT 96
[2023-04-08] MEDS: ACETAMINOPHEN TAB 650MG DOSE (2X325MG) PO PRN (18:58)
[2023-04-08 21:20] VITALS: BP 97/61; TEMP 100.6; O2SAT 97
[2023-04-08 21:58] VITALS: BP 120/58
[2023-04-08] MEDS: DOXAZOSIN MESYLATE 1 MG TAB PO SCH (21:59)
[2023-04-08] MEDS: TAMSULOSIN 0.4 MG CAP PO SCH (21:59)
[2023-04-08] MEDS: RAMELTEON 8 MG TAB (ROZEREM) PO SCH (21:59)
[2023-04-09 05:10] VITALS: BP 102/72; TEMP 98.1; O2SAT 96
[2023-04-09 06:27] LABS: BASO # 0.1 10^3/uL (0.0-0.2); BASO % 0.3 % (0.0-1.0); EOS % 0.1 % (0.0-3.0); HEMATOCRIT 32.7 % (42.0-52.0); HEMOGLOBIN 10.3 g/dl (13.5-17.5); LYMPH # 1.4 10^3/uL (1.5-5.0); LYMPH % 8.6 % (24.0-44.0); MEAN CORPUSCULAR HGB CONC 31.5 g/dl (32.0-36.5); MEAN CORPUSCULAR VOLUME 88.9 fl (80.0-96.0); MONO % 10.1 % (2.0-8.0); NEUTROPHILS # 12.8 10^3/uL (1.5-8.5); NEUTROPHILS % 79.7 % (36.0-66.0); PLATELET COUNT, AUTOMATED 482 10^3/uL (150-450); RED BLOOD COUNT 3.68 10^6/uL (4.30-6.10); WHITE BLOOD COUNT 16.1 10^3/uL (4.0-10.0)
[2023-04-09 06:57] LABS: ALBUMIN 2.8 G/DL (3.2-5.2); ALKALINE PHOSPHATASE 70 U/L (46-116); ALT/SGPT 30 U/L (7.0-40); AST/SGOT 18 U/L (<34); BILIRUBIN,TOTAL 0.5 MG/DL (0.3-1.2); BLOOD UREA NITROGEN 19 MG/DL (9-23); CALCIUM LEVEL 8.6 MG/DL (8.5-10.1); CARBON DIOXIDE LEVEL 27 MMOL/L (20-31); CHLORIDE LEVEL 105 MMOL/L (98-107); CREATININE FOR GFR 0.68 MG/DL (0.70-1.30); GLOMERULAR FILTRATION RATE > 60.0 (>60); GLUCOSE, FASTING 112 MG/DL (60-100); MAGNESIUM LEVEL 1.8 MG/DL (1.8-2.4); POTASSIUM SERUM 4.5 MMOL/L (3.5-5.1); SODIUM LEVEL 138 MMOL/L (136-145); TOTAL PROTEIN 5.8 G/DL (5.7-8.2)
[2023-04-09 08:32] LABS: MONO # 1.6 10^3/uL (0.0-0.8)
[2023-04-09] MEDS: SENOKOT S TAB PO SCH ×2 (09:00→21:23)
[2023-04-09] MEDS: MOM 30ML SUSPENSION UDC PO SCH ×2 (09:00→21:20)
[2023-04-09] MEDS: ENOXAPARIN 40MG/0.4ML SYRINGE (J1650 PER 10MG) SC SCH (09:16)
[2023-04-09] MEDS: PANTOPRAZOLE 40MG TAB (PROTONIX) PO SCH (09:16)
[2023-04-09 14:00] VITALS: BP 110/70; TEMP 98.8; O2SAT 96
[2023-04-09] MEDS ORDERED: MAALOX 30 ML SUSP *UDC PO ONE (16:00)
[2023-04-09 20:48] VITALS: BP 113/71; TEMP 99; O2SAT 97
[2023-04-09] MEDS: DOXAZOSIN MESYLATE 1 MG TAB PO SCH (21:21)
[2023-04-09] MEDS: RAMELTEON 8 MG TAB (ROZEREM) PO SCH (21:21)
[2023-04-09] MEDS: TAMSULOSIN 0.4 MG CAP PO SCH (21:22)
[2023-04-09 22:00] VITALS: BP 113/71
[2023-04-10 06:00] VITALS: BP 105/75; TEMP 98.4; O2SAT 100
[2023-04-10 06:25] LABS: BASO # 0.1 10^3/uL (0.0-0.2); BASO % 0.8 % (0.0-1.0); EOS # 0.2 10^3/uL (0.0-0.5); EOS % 2.5 % (0.0-3.0); HEMATOCRIT 34.2 % (42.0-52.0); HEMOGLOBIN 10.9 g/dl (13.5-17.5); LYMPH # 2.4 10^3/uL (1.5-5.0); LYMPH % 33.1 % (24.0-44.0); MEAN CORPUSCULAR HEMOGLOBIN 28.5 pg (27.0-33.0); MEAN CORPUSCULAR HGB CONC 31.9 g/dl (32.0-36.5); MEAN CORPUSCULAR VOLUME 89.3 fl (80.0-96.0); MONO # 0.9 10^3/uL (0.0-0.8); MONO % 12.3 % (2.0-8.0); NEUTROPHILS # 3.5 10^3/uL (1.5-8.5); NEUTROPHILS % 49.2 % (36.0-66.0); PLATELET COUNT, AUTOMATED 452 10^3/uL (150-450); RED BLOOD COUNT 3.83 10^6/uL (4.30-6.10); WHITE BLOOD COUNT 7.1 10^3/uL (4.0-10.0)
[2023-04-10 06:49] LABS: ALBUMIN 2.7 G/DL (3.2-5.2); ALKALINE PHOSPHATASE 64 U/L (46-116); ALT/SGPT 28 U/L (7.0-40); AST/SGOT 14 U/L (<34); BILIRUBIN,TOTAL 0.3 MG/DL (0.3-1.2); BLOOD UREA NITROGEN 15 MG/DL (9-23); CALCIUM LEVEL 8.9 MG/DL (8.5-10.1); CARBON DIOXIDE LEVEL 29 MMOL/L (20-31); CHLORIDE LEVEL 105 MMOL/L (98-107); CREATININE FOR GFR 0.72 MG/DL (0.70-1.30); GLOMERULAR FILTRATION RATE > 60.0 (>60); GLUCOSE, FASTING 87 MG/DL (60-100); POTASSIUM SERUM 4.2 MMOL/L (3.5-5.1); SODIUM LEVEL 140 MMOL/L (136-145); TOTAL PROTEIN 5.7 G/DL (5.7-8.2)
[2023-04-10] MEDS: MOM 30ML SUSPENSION UDC PO SCH ×2 (09:04→21:40)
[2023-04-10] MEDS: ENOXAPARIN 40MG/0.4ML SYRINGE (J1650 PER 10MG) SC SCH (09:04)
[2023-04-10] MEDS: SENOKOT S TAB PO SCH ×2 (09:05→21:36)
[2023-04-10] MEDS: PANTOPRAZOLE 40MG TAB (PROTONIX) PO SCH (09:05)
[2023-04-10 14:00] VITALS: BP 110/72; TEMP 99.5; O2SAT 97
[2023-04-10 17:16] VITALS: TEMP 99.1
[2023-04-10 20:50] VITALS: BP 112/72; TEMP 99; O2SAT 98
[2023-04-10] MEDS: DOXAZOSIN MESYLATE 1 MG TAB PO SCH (21:39)
[2023-04-10] MEDS: RAMELTEON 8 MG TAB (ROZEREM) PO SCH (21:39)
[2023-04-10] MEDS: TAMSULOSIN 0.4 MG CAP PO SCH (21:40)
[2023-04-10 22:00] VITALS: BP 133/83; O2SAT 98
[2023-04-11 05:55] LABS: BASO # 0.1 10^3/uL (0.0-0.2); BASO % 0.7 % (0.0-1.0); EOS # 0.2 10^3/uL (0.0-0.5); EOS % 1.9 % (0.0-3.0); HEMATOCRIT 35.4 % (42.0-52.0); HEMOGLOBIN 11.3 g/dl (13.5-17.5); LYMPH # 2.4 10^3/uL (1.5-5.0); LYMPH % 25.2 % (24.0-44.0); MEAN CORPUSCULAR HEMOGLOBIN 28.3 pg (27.0-33.0); MEAN CORPUSCULAR HGB CONC 31.9 g/dl (32.0-36.5); MEAN CORPUSCULAR VOLUME 88.5 fl (80.0-96.0); MONO # 0.9 10^3/uL (0.0-0.8); MONO % 9.7 % (2.0-8.0); NEUTROPHILS # 5.8 10^3/uL (1.5-8.5); NEUTROPHILS % 60.9 % (36.0-66.0); PLATELET COUNT, AUTOMATED 519 10^3/uL (150-450); WHITE BLOOD COUNT 9.6 10^3/uL (4.0-10.0)
[2023-04-11 06:00] VITALS: BP 102/68; TEMP 98.8; O2SAT 96
[2023-04-11 06:14] LABS: ALBUMIN 2.9 G/DL (3.2-5.2); ALKALINE PHOSPHATASE 64 U/L (46-116); ALT/SGPT 29 U/L (7.0-40); AST/SGOT 15 U/L (<34); BILIRUBIN,TOTAL 0.3 MG/DL (0.3-1.2); BLOOD UREA NITROGEN 15 MG/DL (9-23); CALCIUM LEVEL 9.6 MG/DL (8.5-10.1); CARBON DIOXIDE LEVEL 28 MMOL/L (20-31); CHLORIDE LEVEL 106 MMOL/L (98-107); CREATININE FOR GFR 0.74 MG/DL (0.70-1.30); GLOMERULAR FILTRATION RATE > 60.0 (>60); GLUCOSE, FASTING 88 MG/DL (60-100); POTASSIUM SERUM 4.7 MMOL/L (3.5-5.1); SODIUM LEVEL 140 MMOL/L (136-145); TOTAL PROTEIN 5.8 G/DL (5.7-8.2)
[2023-04-11] MEDS: PANTOPRAZOLE 40MG TAB (PROTONIX) PO SCH (08:02)
[2023-04-11] MEDS: MOM 30ML SUSPENSION UDC PO SCH ×2 (08:02→20:45)
[2023-04-11] MEDS: ENOXAPARIN 40MG/0.4ML SYRINGE (J1650 PER 10MG) SC SCH (08:02)
[2023-04-11] MEDS: SENOKOT S TAB PO SCH ×2 (08:02→20:45)
[2023-04-11] MEDS ORDERED: MAALOX 30 ML SUSP *UDC PO ONE (09:00)
[2023-04-11 14:00] VITALS: BP 103/69; TEMP 99; O2SAT 100
[2023-04-11 20:40] VITALS: BP 105/70; TEMP 98.4; O2SAT 91
[2023-04-11] MEDS: RAMELTEON 8 MG TAB (ROZEREM) PO SCH (20:45)
[2023-04-11] MEDS: TAMSULOSIN 0.4 MG CAP PO SCH (20:45)
[2023-04-11] MEDS: DOXAZOSIN MESYLATE 1 MG TAB PO SCH (20:48)
[2023-04-12 06:00] VITALS: BP 106/62; TEMP 98.2; O2SAT 91
[2023-04-12 06:49] LABS: BASO # 0.1 10^3/uL (0.0-0.2); BASO % 0.8 % (0.0-1.0); EOS # 0.2 10^3/uL (0.0-0.5); HEMATOCRIT 37.8 % (42.0-52.0); HEMOGLOBIN 11.9 g/dl (13.5-17.5); LYMPH # 2.3 10^3/uL (1.5-5.0); LYMPH % 29.6 % (24.0-44.0); MEAN CORPUSCULAR HGB CONC 31.5 g/dl (32.0-36.5); MEAN CORPUSCULAR VOLUME 88.9 fl (80.0-96.0); MONO # 0.8 10^3/uL (0.0-0.8); MONO % 10.1 % (2.0-8.0); NEUTROPHILS # 4.2 10^3/uL (1.5-8.5); NEUTROPHILS % 55.1 % (36.0-66.0); PLATELET COUNT, AUTOMATED 516 10^3/uL (150-450); RED BLOOD COUNT 4.25 10^6/uL (4.30-6.10); WHITE BLOOD COUNT 7.6 10^3/uL (4.0-10.0)
[2023-04-12 07:25] LABS: ALBUMIN 2.9 G/DL (3.2-5.2); ALKALINE PHOSPHATASE 67 U/L (46-116); ALT/SGPT 26 U/L (7.0-40); AST/SGOT 15 U/L (<34); BILIRUBIN,TOTAL 0.3 MG/DL (0.3-1.2); BLOOD UREA NITROGEN 16 MG/DL (9-23); CALCIUM LEVEL 8.8 MG/DL (8.5-10.1); CARBON DIOXIDE LEVEL 29 MMOL/L (20-31); CHLORIDE LEVEL 106 MMOL/L (98-107); CREATININE FOR GFR 0.89 MG/DL (0.70-1.30); GLOMERULAR FILTRATION RATE > 60.0 (>60); GLUCOSE, FASTING 82 MG/DL (60-100); MAGNESIUM LEVEL 2.3 MG/DL (1.8-2.4); POTASSIUM SERUM 4.7 MMOL/L (3.5-5.1); SODIUM LEVEL 141 MMOL/L (136-145); TOTAL PROTEIN 5.8 G/DL (5.7-8.2)
[2023-04-12] MEDS: SENOKOT S TAB PO SCH ×2 (09:00→21:05)
[2023-04-12] MEDS: MOM 30ML SUSPENSION UDC PO SCH ×2 (09:00→21:06)
[2023-04-12 10:07] LABS: ANTINUCLEAR ANTIBODIES DIRECT Negative (Negative); BRUCELLA ABORTUS ANTIBODY Negative (Negative); CMV QUANT DNA PCR (PLASMA) Positive < 200 IU/mL (Negative)
[2023-04-12] MEDS: PANTOPRAZOLE 40MG TAB (PROTONIX) PO SCH (11:36)
[2023-04-12] MEDS: ENOXAPARIN 40MG/0.4ML SYRINGE (J1650 PER 10MG) SC SCH (11:36)
[2023-04-12 14:00] VITALS: BP 115/86; TEMP 97.2; O2SAT 96
[2023-04-12 20:50] VITALS: BP 108/68; TEMP 98.8; O2SAT 96
[2023-04-12] MEDS: DOXAZOSIN MESYLATE 1 MG TAB PO SCH (21:05)
[2023-04-12] MEDS: TAMSULOSIN 0.4 MG CAP PO SCH (21:05)
[2023-04-12] MEDS: RAMELTEON 8 MG TAB (ROZEREM) PO SCH (21:05)
[2023-04-13 05:20] VITALS: BP 112/72; TEMP 98.1; O2SAT 97
[2023-04-13 06:10] LABS: BASO # 0.1 10^3/uL (0.0-0.2); BASO % 0.7 % (0.0-1.0); EOS # 0.2 10^3/uL (0.0-0.5); EOS % 3.3 % (0.0-3.0); HEMATOCRIT 33.4 % (42.0-52.0); HEMOGLOBIN 10.9 g/dl (13.5-17.5); LYMPH # 2.6 10^3/uL (1.5-5.0); LYMPH % 35.9 % (24.0-44.0); MEAN CORPUSCULAR HEMOGLOBIN 28.7 pg (27.0-33.0); MEAN CORPUSCULAR HGB CONC 32.6 g/dl (32.0-36.5); MEAN CORPUSCULAR VOLUME 87.9 fl (80.0-96.0); MONO # 0.7 10^3/uL (0.0-0.8); MONO % 9.9 % (2.0-8.0); NEUTROPHILS # 3.6 10^3/uL (1.5-8.5); NEUTROPHILS % 49.4 % (36.0-66.0); PLATELET COUNT, AUTOMATED 447 10^3/uL (150-450); WHITE BLOOD COUNT 7.3 10^3/uL (4.0-10.0)
[2023-04-13 06:41] LABS: ALBUMIN 2.9 G/DL (3.2-5.2); ALKALINE PHOSPHATASE 62 U/L (46-116); ALT/SGPT 25 U/L (7.0-40); AST/SGOT 17 U/L (<34); BILIRUBIN,TOTAL 0.2 MG/DL (0.3-1.2); BLOOD UREA NITROGEN 15 MG/DL (9-23); CALCIUM LEVEL 8.5 MG/DL (8.5-10.1); CARBON DIOXIDE LEVEL 27 MMOL/L (20-31); CHLORIDE LEVEL 106 MMOL/L (98-107); CREATININE FOR GFR 0.73 MG/DL (0.70-1.30); GLOMERULAR FILTRATION RATE > 60.0 (>60); GLUCOSE, FASTING 87 MG/DL (60-100); MAGNESIUM LEVEL 2.2 MG/DL (1.8-2.4); POTASSIUM SERUM 4.5 MMOL/L (3.5-5.1); SODIUM LEVEL 141 MMOL/L (136-145); TOTAL PROTEIN 5.6 G/DL (5.7-8.2)
[2023-04-13] MEDS: ENOXAPARIN 40MG/0.4ML SYRINGE (J1650 PER 10MG) SC SCH (07:49)
[2023-04-13] MEDS: SENOKOT S TAB PO SCH ×2 (07:50→21:46)
[2023-04-13] MEDS: PANTOPRAZOLE 40MG TAB (PROTONIX) PO SCH (07:50)
[2023-04-13] MEDS: MOM 30ML SUSPENSION UDC PO SCH ×2 (07:51→21:44)
[2023-04-13 14:00] VITALS: BP 114/72; TEMP 98.1; O2SAT 96
[2023-04-13 21:23] VITALS: BP 116/80; TEMP 99; O2SAT 97
[2023-04-13] MEDS: RAMELTEON 8 MG TAB (ROZEREM) PO SCH (21:44)
[2023-04-13] MEDS: TAMSULOSIN 0.4 MG CAP PO SCH (21:44)
[2023-04-13] MEDS: DOXAZOSIN MESYLATE 1 MG TAB PO SCH (21:46)
[2023-04-14 05:56] VITALS: BP 115/80; TEMP 97.3; O2SAT 98
[2023-04-14 06:34] LABS: BASO # 0.1 10^3/uL (0.0-0.2); BASO % 1.1 % (0.0-1.0); EOS # 0.2 10^3/uL (0.0-0.5); EOS % 3.1 % (0.0-3.0); HEMATOCRIT 35.9 % (42.0-52.0); HEMOGLOBIN 11.2 g/dl (13.5-17.5); LYMPH # 2.2 10^3/uL (1.5-5.0); LYMPH % 33.3 % (24.0-44.0); MEAN CORPUSCULAR HGB CONC 31.2 g/dl (32.0-36.5); MEAN CORPUSCULAR VOLUME 89.8 fl (80.0-96.0); MONO # 0.6 10^3/uL (0.0-0.8); MONO % 9.3 % (2.0-8.0); NEUTROPHILS # 3.4 10^3/uL (1.5-8.5); PLATELET COUNT, AUTOMATED 451 10^3/uL (150-450); WHITE BLOOD COUNT 6.6 10^3/uL (4.0-10.0)
[2023-04-14 06:58] LABS: ALBUMIN 2.8 G/DL (3.2-5.2); ALKALINE PHOSPHATASE 61 U/L (46-116); ALT/SGPT 27 U/L (7.0-40); AST/SGOT 18 U/L (<34); BILIRUBIN,TOTAL 0.2 MG/DL (0.3-1.2); BLOOD UREA NITROGEN 14 MG/DL (9-23); CARBON DIOXIDE LEVEL 28 MMOL/L (20-31); CHLORIDE LEVEL 107 MMOL/L (98-107); CREATININE FOR GFR 0.83 MG/DL (0.70-1.30); GLOMERULAR FILTRATION RATE > 60.0 (>60); GLUCOSE, FASTING 85 MG/DL (60-100); MAGNESIUM LEVEL 2.1 MG/DL (1.8-2.4); POTASSIUM SERUM 4.6 MMOL/L (3.5-5.1); SODIUM LEVEL 141 MMOL/L (136-145); TOTAL PROTEIN 5.6 G/DL (5.7-8.2)
[2023-04-14] MEDS: PANTOPRAZOLE 40MG TAB (PROTONIX) PO SCH (09:30)
[2023-04-14] MEDS: SENOKOT S TAB PO SCH ×2 (09:30→21:39)
[2023-04-14] MEDS: ENOXAPARIN 40MG/0.4ML SYRINGE (J1650 PER 10MG) SC SCH (09:30)
[2023-04-14] MEDS: MOM 30ML SUSPENSION UDC PO SCH ×2 (09:30→21:40)
[2023-04-14 19:42] VITALS: BP 122/58; TEMP 99
[2023-04-14] MEDS: DOXAZOSIN MESYLATE 1 MG TAB PO SCH (21:39)
[2023-04-14] MEDS: RAMELTEON 8 MG TAB (ROZEREM) PO SCH (21:39)
[2023-04-14] MEDS: TAMSULOSIN 0.4 MG CAP PO SCH (21:39)
[2023-04-15 06:00] VITALS: BP 117/69; TEMP 98.6; O2SAT 98
[2023-04-15] MEDS: SENOKOT S TAB PO SCH ×2 (09:38→21:36)
[2023-04-15] MEDS: ENOXAPARIN 40MG/0.4ML SYRINGE (J1650 PER 10MG) SC SCH (09:38)
[2023-04-15] MEDS: PANTOPRAZOLE 40MG TAB (PROTONIX) PO SCH (09:38)
[2023-04-15] MEDS: MOM 30ML SUSPENSION UDC PO SCH ×2 (09:38→21:35)
[2023-04-15 14:00] VITALS: BP 121/80; TEMP 98.6; O2SAT 99
[2023-04-15 20:45] VITALS: BP 116/76; TEMP 97.9; O2SAT 99
[2023-04-15] MEDS: TAMSULOSIN 0.4 MG CAP PO SCH (21:36)
[2023-04-15] MEDS: RAMELTEON 8 MG TAB (ROZEREM) PO SCH (21:36)
[2023-04-15] MEDS: DOXAZOSIN MESYLATE 1 MG TAB PO SCH (21:38)
[2023-04-16 05:30] VITALS: BP 111/77; TEMP 98.2; O2SAT 99
[2023-04-16] MEDS: MOM 30ML SUSPENSION UDC PO SCH ×2 (09:52→20:43)
[2023-04-16] MEDS: PANTOPRAZOLE 40MG TAB (PROTONIX) PO SCH (09:53)
[2023-04-16] MEDS: ENOXAPARIN 40MG/0.4ML SYRINGE (J1650 PER 10MG) SC SCH (09:53)
[2023-04-16] MEDS: SENOKOT S TAB PO SCH ×2 (09:53→20:44)
[2023-04-16] MEDS: ACETAMINOPHEN TAB 650MG DOSE (2X325MG) PO PRN (10:41)
[2023-04-16 12:03] LABS: Q FEVER PCR SEE SEPARATE REPORT
[2023-04-16] MEDS: TAMSULOSIN 0.4 MG CAP PO SCH (20:44)
[2023-04-16] MEDS: RAMELTEON 8 MG TAB (ROZEREM) PO SCH (20:44)
[2023-04-16] MEDS: DOXAZOSIN MESYLATE 1 MG TAB PO SCH (20:48)
[2023-04-17 06:00] VITALS: BP 123/61; TEMP 98.1; O2SAT 98
[2023-04-17] MEDS: ENOXAPARIN 40MG/0.4ML SYRINGE (J1650 PER 10MG) SC SCH (10:40)
[2023-04-17] MEDS: MOM 30ML SUSPENSION UDC PO SCH ×2 (10:40→21:34)
[2023-04-17] MEDS: PANTOPRAZOLE 40MG TAB (PROTONIX) PO SCH (10:41)
[2023-04-17] MEDS: SENOKOT S TAB PO SCH ×2 (10:42→21:34)
[2023-04-17] MEDS: RAMELTEON 8 MG TAB (ROZEREM) PO SCH (21:00)
[2023-04-17] MEDS: DOXAZOSIN MESYLATE 1 MG TAB PO SCH (21:35)
[2023-04-17] MEDS: TAMSULOSIN 0.4 MG CAP PO SCH (21:35)
[2023-04-18 06:31] VITALS: BP 121/64; TEMP 97.9; O2SAT 99
[2023-04-18] MEDS: SENOKOT S TAB PO SCH ×2 (08:39→22:21)
[2023-04-18] MEDS: MOM 30ML SUSPENSION UDC PO SCH ×2 (08:39→22:22)
[2023-04-18] MEDS: PANTOPRAZOLE 40MG TAB (PROTONIX) PO SCH (08:39)
[2023-04-18] MEDS: ENOXAPARIN 40MG/0.4ML SYRINGE (J1650 PER 10MG) SC SCH (08:42)
[2023-04-18] MEDS: TAMSULOSIN 0.4 MG CAP PO SCH (22:18)
[2023-04-18] MEDS: RAMELTEON 8 MG TAB (ROZEREM) PO SCH (22:22)
[2023-04-18] MEDS: DOXAZOSIN MESYLATE 1 MG TAB PO SCH (22:23)
[2023-04-19 05:38] VITALS: BP 108/72; TEMP 98.1; O2SAT 99
[2023-04-19] MEDS: SENOKOT S TAB PO SCH ×2 (09:02→20:19)
[2023-04-19] MEDS: MOM 30ML SUSPENSION UDC PO SCH ×2 (09:03→20:18)
[2023-04-19] MEDS: PANTOPRAZOLE 40MG TAB (PROTONIX) PO SCH (09:03)
[2023-04-19] MEDS: ENOXAPARIN 40MG/0.4ML SYRINGE (J1650 PER 10MG) SC SCH (09:03)
[2023-04-19 14:00] VITALS: BP 106/67; TEMP 98.2; O2SAT 98
[2023-04-19] MEDS: RAMELTEON 8 MG TAB (ROZEREM) PO SCH (20:28)
[2023-04-19] MEDS: TAMSULOSIN 0.4 MG CAP PO SCH (20:29)
[2023-04-19] MEDS: LORazepam 2 MG TAB PO PRN (20:29)
[2023-04-19] MEDS: DOXAZOSIN MESYLATE 1 MG TAB PO SCH (20:29)
[2023-04-20 06:29] VITALS: BP 96/60; TEMP 97.7; O2SAT 97
[2023-04-20 06:48] VITALS: BP 106/64
[2023-04-20] MEDS: PANTOPRAZOLE 40MG TAB (PROTONIX) PO SCH (08:17)
[2023-04-20] MEDS: ENOXAPARIN 40MG/0.4ML SYRINGE (J1650 PER 10MG) SC SCH (08:17)
[2023-04-20] MEDS: SENOKOT S TAB PO SCH ×2 (08:18→20:05)
[2023-04-20] MEDS: MOM 30ML SUSPENSION UDC PO SCH ×2 (08:18→20:05)
[2023-04-20 15:22] LABS: BASO # 0.1 10^3/uL (0.0-0.2); BASO % 0.7 % (0.0-1.0); EOS # 0.3 10^3/uL (0.0-0.5); EOS % 4.3 % (0.0-3.0); HEMATOCRIT 32.7 % (42.0-52.0); HEMOGLOBIN 10.5 g/dl (13.5-17.5); LYMPH # 2.7 10^3/uL (1.5-5.0); LYMPH % 38.8 % (24.0-44.0); MEAN CORPUSCULAR HEMOGLOBIN 28.8 pg (27.0-33.0); MEAN CORPUSCULAR HGB CONC 32.1 g/dl (32.0-36.5); MEAN CORPUSCULAR VOLUME 89.8 fl (80.0-96.0); MONO # 0.8 10^3/uL (0.0-0.8); MONO % 11.2 % (2.0-8.0); NEUTROPHILS # 3.1 10^3/uL (1.5-8.5); NEUTROPHILS % 44.3 % (36.0-66.0); PLATELET COUNT, AUTOMATED 346 10^3/uL (150-450); RED BLOOD COUNT 3.64 10^6/uL (4.30-6.10)
[2023-04-20] MEDS: TAMSULOSIN 0.4 MG CAP PO SCH (20:05)
[2023-04-20] MEDS: DOXAZOSIN MESYLATE 1 MG TAB PO SCH (20:10)
[2023-04-20] MEDS: RAMELTEON 8 MG TAB (ROZEREM) PO SCH (20:10)
[2023-04-20] MEDS: LORazepam 2 MG TAB PO PRN (20:12)
[2023-04-21 06:21] VITALS: BP 118/78; TEMP 97.2; O2SAT 100
[2023-04-21] MEDS: ENOXAPARIN 40MG/0.4ML SYRINGE (J1650 PER 10MG) SC SCH (08:36)
[2023-04-21] MEDS: SENOKOT S TAB PO SCH ×2 (08:36→20:04)
[2023-04-21] MEDS: PANTOPRAZOLE 40MG TAB (PROTONIX) PO SCH (08:36)
[2023-04-21] MEDS: MOM 30ML SUSPENSION UDC PO SCH ×2 (08:37→20:04)
[2023-04-21] MEDS: TAMSULOSIN 0.4 MG CAP PO SCH (20:04)
[2023-04-21] MEDS: RAMELTEON 8 MG TAB (ROZEREM) PO SCH (20:04)
[2023-04-21] MEDS: DOXAZOSIN MESYLATE 1 MG TAB PO SCH (20:09)
[2023-04-21] MEDS: QUEtiapine FUMARATE 25 MG TAB PO PRN (20:10)
[2023-04-22 06:00] VITALS: BP 102/70; TEMP 98.2; O2SAT 96
[2023-04-22] MEDS: PANTOPRAZOLE 40MG TAB (PROTONIX) PO SCH (08:30)
[2023-04-22] MEDS: ENOXAPARIN 40MG/0.4ML SYRINGE (J1650 PER 10MG) SC SCH (08:30)
[2023-04-22] MEDS: MOM 30ML SUSPENSION UDC PO SCH ×2 (08:30→19:50)
[2023-04-22] MEDS: SENOKOT S TAB PO SCH ×2 (08:30→19:50)
[2023-04-22] MEDS: RAMELTEON 8 MG TAB (ROZEREM) PO SCH (19:50)
[2023-04-22] MEDS: DOXAZOSIN MESYLATE 1 MG TAB PO SCH (19:52)
[2023-04-22] MEDS: TAMSULOSIN 0.4 MG CAP PO SCH (19:54)
[2023-04-22] MEDS: QUEtiapine FUMARATE 25 MG TAB PO PRN (19:54)
[2023-04-22] MEDS: LORazepam 2 MG TAB PO PRN (22:00)
[2023-04-23 06:00] VITALS: BP 102/60; TEMP 98.1; O2SAT 98
[2023-04-23] MEDS: SENOKOT S TAB PO SCH ×2 (09:48→20:09)
[2023-04-23] MEDS: MOM 30ML SUSPENSION UDC PO SCH ×2 (09:48→20:10)
[2023-04-23] MEDS: ENOXAPARIN 40MG/0.4ML SYRINGE (J1650 PER 10MG) SC SCH (09:48)
[2023-04-23] MEDS: PANTOPRAZOLE 40MG TAB (PROTONIX) PO SCH (09:49)
[2023-04-23] MEDS: RAMELTEON 8 MG TAB (ROZEREM) PO SCH (20:09)
[2023-04-23] MEDS: TAMSULOSIN 0.4 MG CAP PO SCH (20:10)
[2023-04-23] MEDS: DOXAZOSIN MESYLATE 1 MG TAB PO SCH (20:10)
[2023-04-23] MEDS: LORazepam 2 MG TAB PO PRN (20:12)
[2023-04-24 06:00] VITALS: BP 101/55; TEMP 97.9; O2SAT 99
[2023-04-24] MEDS: ENOXAPARIN 40MG/0.4ML SYRINGE (J1650 PER 10MG) SC SCH (08:43)
[2023-04-24] MEDS: SENOKOT S TAB PO SCH ×2 (08:43→20:35)
[2023-04-24] MEDS: MOM 30ML SUSPENSION UDC PO SCH ×2 (08:43→20:35)
[2023-04-24] MEDS: PANTOPRAZOLE 40MG TAB (PROTONIX) PO SCH (08:43)
[2023-04-24] MEDS: TAMSULOSIN 0.4 MG CAP PO SCH (20:35)
[2023-04-24] MEDS: QUEtiapine FUMARATE 25 MG TAB PO PRN (20:35)
[2023-04-24] MEDS: DOXAZOSIN MESYLATE 1 MG TAB PO SCH (20:35)
[2023-04-24] MEDS: RAMELTEON 8 MG TAB (ROZEREM) PO SCH (20:36)
[2023-04-25 06:00] VITALS: BP 96/64; TEMP 97.9; O2SAT 100
[2023-04-25] MEDS: MOM 30ML SUSPENSION UDC PO SCH ×2 (08:34→20:38)
[2023-04-25] MEDS: PANTOPRAZOLE 40MG TAB (PROTONIX) PO SCH (08:34)
[2023-04-25] MEDS: ENOXAPARIN 40MG/0.4ML SYRINGE (J1650 PER 10MG) SC SCH (08:35)
[2023-04-25] MEDS: SENOKOT S TAB PO SCH ×2 (08:35→20:34)
[2023-04-25] MEDS: TAMSULOSIN 0.4 MG CAP PO SCH (20:35)
[2023-04-25] MEDS: RAMELTEON 8 MG TAB (ROZEREM) PO SCH (20:38)
[2023-04-25] MEDS: DOXAZOSIN MESYLATE 1 MG TAB PO SCH (21:00)
[2023-04-26 04:50] VITALS: BP 97/58; TEMP 98.1; O2SAT 96
[2023-04-26] MEDS: PANTOPRAZOLE 40MG TAB (PROTONIX) PO SCH (08:31)
[2023-04-26] MEDS: MOM 30ML SUSPENSION UDC PO SCH ×2 (08:31→20:56)
[2023-04-26] MEDS: ENOXAPARIN 40MG/0.4ML SYRINGE (J1650 PER 10MG) SC SCH (08:31)
[2023-04-26] MEDS: SENOKOT S TAB PO SCH ×2 (08:31→20:56)
[2023-04-26] MEDS: RAMELTEON 8 MG TAB (ROZEREM) PO SCH (20:56)
[2023-04-26] MEDS: DOXAZOSIN MESYLATE 1 MG TAB PO SCH (20:56)
[2023-04-26] MEDS: TAMSULOSIN 0.4 MG CAP PO SCH (20:56)
[2023-04-27 05:34] VITALS: BP 105/71; TEMP 97.9; O2SAT 95
[2023-04-27 06:08] LABS: BASO # 0.1 10^3/uL (0.0-0.2); BASO % 0.8 % (0.0-1.0); EOS # 0.3 10^3/uL (0.0-0.5); EOS % 4.4 % (0.0-3.0); HEMATOCRIT 39.3 % (42.0-52.0); HEMOGLOBIN 12.6 g/dl (13.5-17.5); LYMPH # 1.8 10^3/uL (1.5-5.0); LYMPH % 29.5 % (24.0-44.0); MEAN CORPUSCULAR HGB CONC 32.1 g/dl (32.0-36.5); MEAN CORPUSCULAR VOLUME 90.3 fl (80.0-96.0); MONO # 0.6 10^3/uL (0.0-0.8); MONO % 10.3 % (2.0-8.0); NEUTROPHILS # 3.3 10^3/uL (1.5-8.5); NEUTROPHILS % 54.2 % (36.0-66.0); PLATELET COUNT, AUTOMATED 304 10^3/uL (150-450); RED BLOOD COUNT 4.35 10^6/uL (4.30-6.10); WHITE BLOOD COUNT 6.1 10^3/uL (4.0-10.0)
[2023-04-27 06:21] LABS: BLOOD UREA NITROGEN 17 MG/DL (9-23); CARBON DIOXIDE LEVEL 29 MMOL/L (20-31); CHLORIDE LEVEL 108 MMOL/L (98-107); CREATININE FOR GFR 0.79 MG/DL (0.70-1.30); GLOMERULAR FILTRATION RATE > 60.0 (>60); GLUCOSE, FASTING 96 MG/DL (60-100); POTASSIUM SERUM 4.5 MMOL/L (3.5-5.1); SODIUM LEVEL 142 MMOL/L (136-145)
[2023-04-27] MEDS: SENOKOT S TAB PO SCH ×2 (09:24→20:31)
[2023-04-27] MEDS: PANTOPRAZOLE 40MG TAB (PROTONIX) PO SCH (09:24)
[2023-04-27] MEDS: MOM 30ML SUSPENSION UDC PO SCH ×2 (09:25→20:31)
[2023-04-27] MEDS: ENOXAPARIN 40MG/0.4ML SYRINGE (J1650 PER 10MG) SC SCH (09:26)
[2023-04-27] MEDS: RAMELTEON 8 MG TAB (ROZEREM) PO SCH (20:30)
[2023-04-27] MEDS: DOXAZOSIN MESYLATE 1 MG TAB PO SCH (20:30)
[2023-04-27] MEDS: TAMSULOSIN 0.4 MG CAP PO SCH (20:31)
[2023-04-28 06:00] VITALS: BP 100/58; TEMP 97.9; O2SAT 97
[2023-04-28] MEDS: ENOXAPARIN 40MG/0.4ML SYRINGE (J1650 PER 10MG) SC SCH (08:35)
[2023-04-28] MEDS: PANTOPRAZOLE 40MG TAB (PROTONIX) PO SCH (08:35)
[2023-04-28] MEDS: MOM 30ML SUSPENSION UDC PO SCH ×2 (08:35→19:34)
[2023-04-28] MEDS: SENOKOT S TAB PO SCH ×2 (08:35→19:34)
[2023-04-28] MEDS: QUEtiapine FUMARATE 25 MG TAB PO PRN (19:34)
[2023-04-28] MEDS: RAMELTEON 8 MG TAB (ROZEREM) PO SCH (19:35)
[2023-04-28] MEDS: DOXAZOSIN MESYLATE 1 MG TAB PO SCH (19:35)
[2023-04-28] MEDS: TAMSULOSIN 0.4 MG CAP PO SCH (19:35)
[2023-04-28] MEDS: LORazepam 2 MG TAB PO PRN (19:35)
[2023-04-29 06:00] VITALS: BP 104/67; TEMP 98.4; O2SAT 97
[2023-04-29] MEDS: PANTOPRAZOLE 40MG TAB (PROTONIX) PO SCH (08:27)
[2023-04-29] MEDS: MOM 30ML SUSPENSION UDC PO SCH ×2 (08:27→20:04)
[2023-04-29] MEDS: SENOKOT S TAB PO SCH ×2 (08:27→20:02)
[2023-04-29] MEDS: ENOXAPARIN 40MG/0.4ML SYRINGE (J1650 PER 10MG) SC SCH (08:28)
[2023-04-29] MEDS: RAMELTEON 8 MG TAB (ROZEREM) PO SCH (20:03)
[2023-04-29] MEDS: TAMSULOSIN 0.4 MG CAP PO SCH (20:03)
[2023-04-29] MEDS: DOXAZOSIN MESYLATE 1 MG TAB PO SCH (20:03)
[2023-04-30 06:00] VITALS: BP 106/70; TEMP 98.1; O2SAT 97
[2023-04-30] MEDS: SENOKOT S TAB PO SCH ×2 (08:11→21:42)
[2023-04-30] MEDS: MOM 30ML SUSPENSION UDC PO SCH ×2 (08:11→21:41)
[2023-04-30] MEDS: PANTOPRAZOLE 40MG TAB (PROTONIX) PO SCH (08:11)
[2023-04-30] MEDS: ENOXAPARIN 40MG/0.4ML SYRINGE (J1650 PER 10MG) SC SCH (08:12)
[2023-04-30] MEDS: RAMELTEON 8 MG TAB (ROZEREM) PO SCH (21:46)
[2023-04-30] MEDS: LORazepam 2 MG TAB PO PRN (21:46)
[2023-04-30] MEDS: DOXAZOSIN MESYLATE 1 MG TAB PO SCH (21:46)
[2023-04-30] MEDS: TAMSULOSIN 0.4 MG CAP PO SCH (21:47)
[2023-04-30] MEDS: QUEtiapine FUMARATE 25 MG TAB PO PRN (21:47)
[2023-05-01 06:05] VITALS: BP 95/60; TEMP 97.9; O2SAT 98
[2023-05-01 09:11] VITALS: BP 100/62
[2023-05-01] MEDS: PANTOPRAZOLE 40MG TAB (PROTONIX) PO SCH (09:12)
[2023-05-01] MEDS: ENOXAPARIN 40MG/0.4ML SYRINGE (J1650 PER 10MG) SC SCH (09:12)
[2023-05-01] MEDS: MOM 30ML SUSPENSION UDC PO SCH ×2 (09:12→20:32)
[2023-05-01] MEDS: SENOKOT S TAB PO SCH ×2 (09:12→20:31)
[2023-05-01] MEDS: TAMSULOSIN 0.4 MG CAP PO SCH (20:31)
[2023-05-01] MEDS: DOXAZOSIN MESYLATE 1 MG TAB PO SCH (20:31)
[2023-05-01] MEDS: RAMELTEON 8 MG TAB (ROZEREM) PO SCH (20:31)
[2023-05-02 06:00] VITALS: BP 103/59; TEMP 98.1; O2SAT 97
[2023-05-02] MEDS: MOM 30ML SUSPENSION UDC PO SCH ×2 (10:05→20:22)
[2023-05-02] MEDS: PANTOPRAZOLE 40MG TAB (PROTONIX) PO SCH (10:06)
[2023-05-02] MEDS: ENOXAPARIN 40MG/0.4ML SYRINGE (J1650 PER 10MG) SC SCH (10:06)
[2023-05-02] MEDS: SENOKOT S TAB PO SCH ×2 (10:06→20:21)
[2023-05-02] MEDS: TAMSULOSIN 0.4 MG CAP PO SCH (20:21)
[2023-05-02] MEDS: RAMELTEON 8 MG TAB (ROZEREM) PO SCH (20:21)
[2023-05-02] MEDS: DOXAZOSIN MESYLATE 1 MG TAB PO SCH (20:22)
[2023-05-03 06:45] VITALS: BP 118/73; TEMP 97.9; O2SAT 96
[2023-05-03] MEDS: ENOXAPARIN 40MG/0.4ML SYRINGE (J1650 PER 10MG) SC SCH (08:30)
[2023-05-03] MEDS: PANTOPRAZOLE 40MG TAB (PROTONIX) PO SCH (08:30)
[2023-05-03] MEDS: MOM 30ML SUSPENSION UDC PO SCH ×2 (08:30→20:33)
[2023-05-03] MEDS: SENOKOT S TAB PO SCH ×2 (08:30→20:33)
[2023-05-03] MEDS: TAMSULOSIN 0.4 MG CAP PO SCH (20:33)
[2023-05-03] MEDS: RAMELTEON 8 MG TAB (ROZEREM) PO SCH (20:33)
[2023-05-03] MEDS: DOXAZOSIN MESYLATE 1 MG TAB PO SCH (20:37)
[2023-05-04 06:00] VITALS: BP 106/68; TEMP 98.1
[2023-05-04 06:17] LABS: BASO # 0.1 10^3/uL (0.0-0.2); BASO % 0.8 % (0.0-1.0); EOS # 0.3 10^3/uL (0.0-0.5); HEMATOCRIT 36.5 % (42.0-52.0); HEMOGLOBIN 11.4 g/dl (13.5-17.5); LYMPH # 2.4 10^3/uL (1.5-5.0); LYMPH % 30.3 % (24.0-44.0); MEAN CORPUSCULAR HEMOGLOBIN 28.4 pg (27.0-33.0); MEAN CORPUSCULAR HGB CONC 31.2 g/dl (32.0-36.5); MEAN CORPUSCULAR VOLUME 90.8 fl (80.0-96.0); MONO # 0.9 10^3/uL (0.0-0.8); MONO % 11.4 % (2.0-8.0); PLATELET COUNT, AUTOMATED 246 10^3/uL (150-450); RED BLOOD COUNT 4.02 10^6/uL (4.30-6.10); WHITE BLOOD COUNT 7.8 10^3/uL (4.0-10.0)
[2023-05-04 06:40] LABS: BLOOD UREA NITROGEN 19 MG/DL (9-23); CALCIUM LEVEL 8.8 MG/DL (8.5-10.1); CARBON DIOXIDE LEVEL 27 MMOL/L (20-31); CHLORIDE LEVEL 107 MMOL/L (98-107); CREATININE FOR GFR 0.84 MG/DL (0.70-1.30); GLOMERULAR FILTRATION RATE > 60.0 (>60); GLUCOSE, FASTING 89 MG/DL (60-100); POTASSIUM SERUM 4.8 MMOL/L (3.5-5.1); SODIUM LEVEL 142 MMOL/L (136-145)
[2023-05-04] MEDS: ENOXAPARIN 40MG/0.4ML SYRINGE (J1650 PER 10MG) SC SCH (09:06)
[2023-05-04] MEDS: SENOKOT S TAB PO SCH ×2 (09:06→20:59)
[2023-05-04] MEDS: PANTOPRAZOLE 40MG TAB (PROTONIX) PO SCH (09:07)
[2023-05-04] MEDS: MOM 30ML SUSPENSION UDC PO SCH ×2 (09:07→20:59)
[2023-05-04] MEDS: RAMELTEON 8 MG TAB (ROZEREM) PO SCH (20:59)
[2023-05-04] MEDS: TAMSULOSIN 0.4 MG CAP PO SCH (20:59)
[2023-05-04] MEDS: DOXAZOSIN MESYLATE 1 MG TAB PO SCH (21:00)
[2023-05-05 06:22] VITALS: BP 104/68; TEMP 97.5; O2SAT 97
[2023-05-05] MEDS: SENOKOT S TAB PO SCH ×2 (09:32→20:50)
[2023-05-05] MEDS: PANTOPRAZOLE 40MG TAB (PROTONIX) PO SCH (09:32)
[2023-05-05] MEDS: MOM 30ML SUSPENSION UDC PO SCH ×2 (09:33→20:50)
[2023-05-05] MEDS: ENOXAPARIN 40MG/0.4ML SYRINGE (J1650 PER 10MG) SC SCH (09:33)
[2023-05-05] MEDS: TAMSULOSIN 0.4 MG CAP PO SCH (20:49)
[2023-05-05] MEDS: RAMELTEON 8 MG TAB (ROZEREM) PO SCH (20:50)
[2023-05-05] MEDS: DOXAZOSIN MESYLATE 1 MG TAB PO SCH (20:50)
[2023-05-06 06:00] VITALS: BP 118/75; TEMP 98.1; O2SAT 97
[2023-05-06] MEDS: ENOXAPARIN 40MG/0.4ML SYRINGE (J1650 PER 10MG) SC SCH (08:05)
[2023-05-06] MEDS: PANTOPRAZOLE 40MG TAB (PROTONIX) PO SCH (08:06)
[2023-05-06] MEDS: SENOKOT S TAB PO SCH ×2 (08:06→20:54)
[2023-05-06] MEDS: MOM 30ML SUSPENSION UDC PO SCH ×2 (08:06→20:54)
[2023-05-06] MEDS: RAMELTEON 8 MG TAB (ROZEREM) PO SCH (20:54)
[2023-05-06] MEDS: TAMSULOSIN 0.4 MG CAP PO SCH (20:54)
[2023-05-06 20:56] VITALS: BP 124/80
[2023-05-06] MEDS: DOXAZOSIN MESYLATE 1 MG TAB PO SCH (20:56)
[2023-05-07 06:46] VITALS: BP 102/64; TEMP 97.9; O2SAT 96
[2023-05-07] MEDS: MOM 30ML SUSPENSION UDC PO SCH (08:32)
[2023-05-07] MEDS: SENOKOT S TAB PO SCH (08:32)
[2023-05-07] MEDS: ENOXAPARIN 40MG/0.4ML SYRINGE (J1650 PER 10MG) SC SCH (08:32)
[2023-05-07] MEDS: PANTOPRAZOLE 40MG TAB (PROTONIX) PO SCH (08:32)
[2023-05-07] MEDS ORDERED: PANT40TA29 PO (12:59)
[2023-05-07] MEDS ORDERED: SENN-52 PO (12:59)
[2023-05-07] MEDS ORDERED: FLOM0.4C39 PO (12:59)
[2023-05-07] MEDS ORDERED: CLOZ25TA6 PO (12:59)
[2023-05-07] MEDS ORDERED: CLOZ100T5 PO (12:59)
[2023-05-07] MEDS ORDERED: MOM30SS2 PO (12:59)
[2023-05-07] MEDS ORDERED: QUET1TAB17 PO (12:59)
[2023-05-07] MEDS ORDERED: DOXA1TAB91 PO (12:59)
[2023-05-07] MEDS ORDERED: RAME8TAB2 PO (12:59)
== END 2023-05-07 16:13 | DRG 70 ==
LOC: M PCU 11:19 → INTOOBSV 11:19 → OBSVTOIN 18:45 → M MSPAV 03-22 18:36
PROVIDERS: ADMIT Internal Medicine; ATTEND Internal Medicine
PROC: 009U3ZZ Drainage of Spinal Canal, Percutaneous Approach (ICD-10-PCS; principal; 2023-03-18 08:23)
PROC: 05HB33Z Insertion of Infusion Device into Right Basilic Vein, Percutaneous Approach (ICD-10-PCS; 2023-03-22)
DX: G93.41 Metabolic encephalopathy (principal); A41.9 Sepsis, unspecified organism; F20.2 Catatonic schizophrenia; G91.9 Hydrocephalus, unspecified; N39.0 Urinary tract infection, site not specified; G21.0 Malignant neuroleptic syndrome; K76.0 Fatty (change of) liver, not elsewhere classified; R33.9 Retention of urine, unspecified; J01.80 Other acute sinusitis; R74.01 Elevation of levels of liver transaminase levels; L27.0 Generalized skin eruption due to drugs and medicaments taken internally; E86.0 Dehydration; B95.61 Methicillin susceptible Staphylococcus aureus infection as the cause of diseases classified elsewhere; K56.41 Fecal impaction; R94.5 Abnormal results of liver function studies; K52.9 Noninfective gastroenteritis and colitis, unspecified; Z79.899 Other long term (current) drug therapy; K62.89 Other specified diseases of anus and rectum

== ENCOUNTER 2023-05-07 15:33 | Inpatient (IN) | payer MEDICARE, MEDICAID ==
[~2023-05-07] VITALS: Ht 177.8 cm; Wt 69.7 kg
[~2023-05-07 15:33] MED LIST changes: +CLOZ25TA6 PO; +DOXA1TAB91 PO; +FLOM0.4C39 PO; +MOM30SS2 PO; +PANT40TA29 PO; +QUET1TAB17 PO; +RAME8TAB2 PO; +SENN-52 PO
[2023-05-07] MEDS ORDERED: traZODone 50 MG TAB PO PRN (15:40)
[2023-05-07] MEDS ORDERED: ACETAMINOPHEN TAB 650MG DOSE (2X325MG) PO PRN (15:40)
[2023-05-07] MEDS ORDERED: diphenhydrAMINE 25MG CAP PO PRN (15:40)
[2023-05-07] MEDS ORDERED: MAALOX 30 ML SUSP *UDC PO PRN (15:40)
[2023-05-07] MEDS ORDERED: IBUPROFEN 400MG TAB PO PRN (15:40)
[2023-05-07] MEDS ORDERED: MOM 30ML SUSPENSION UDC PO PRN ×2 (15:40→15:50)
[2023-05-07] MEDS ORDERED: QUEtiapine FUMARATE 25 MG TAB PO PRN (15:50)
[2023-05-07 16:37] VITALS: BP 112/61; TEMP 98.3; O2SAT 99
[2023-05-07 17:32] LABS: BASO # 0.1 10^3/uL (0.0-0.2); BASO % 0.8 % (0.0-1.0); EOS # 0.3 10^3/uL (0.0-0.5); EOS % 2.7 % (0.0-3.0); HEMATOCRIT 41.1 % (42.0-52.0); HEMOGLOBIN 12.7 g/dl (13.5-17.5); LYMPH # 3.3 10^3/uL (1.5-5.0); LYMPH % 31.8 % (24.0-44.0); MEAN CORPUSCULAR HEMOGLOBIN 28.4 pg (27.0-33.0); MEAN CORPUSCULAR HGB CONC 30.9 g/dl (32.0-36.5); MEAN CORPUSCULAR VOLUME 91.9 fl (80.0-96.0); MONO # 0.9 10^3/uL (0.0-0.8); NEUTROPHILS # 5.5 10^3/uL (1.5-8.5); NEUTROPHILS % 53.3 % (36.0-66.0); PLATELET COUNT, AUTOMATED 283 10^3/uL (150-450); RED BLOOD COUNT 4.47 10^6/uL (4.30-6.10); WHITE BLOOD COUNT 10.4 10^3/uL (4.0-10.0)
[2023-05-07] MEDS: DOXAZOSIN MESYLATE 1 MG TAB PO SCH (20:38)
[2023-05-07] MEDS: RAMELTEON 8 MG TAB (ROZEREM) PO SCH (20:38)
[2023-05-07] MEDS: SENOKOT S TAB PO SCH (20:38)
[2023-05-07] MEDS: TAMSULOSIN 0.4 MG CAP PO SCH (20:38)
[2023-05-08 06:44] VITALS: BP 125/85; TEMP 97.7; O2SAT 99
[2023-05-08] MEDS: SENOKOT S TAB PO SCH ×2 (10:33→21:03)
[2023-05-08] MEDS: PANTOPRAZOLE 40MG TAB (PROTONIX) PO SCH (10:33)
[2023-05-08 16:50] VITALS: BP 132/77; TEMP 98.6; O2SAT 97
[2023-05-08] MEDS: RAMELTEON 8 MG TAB (ROZEREM) PO SCH (21:03)
[2023-05-08] MEDS: TAMSULOSIN 0.4 MG CAP PO SCH (21:04)
[2023-05-08] MEDS: DOXAZOSIN MESYLATE 1 MG TAB PO SCH (21:06)
[2023-05-09 06:48] VITALS: BP 121/73; TEMP 98.1; O2SAT 99
[2023-05-09] MEDS: PANTOPRAZOLE 40MG TAB (PROTONIX) PO SCH (09:53)
[2023-05-09] MEDS: SENOKOT S TAB PO SCH ×2 (09:53→21:07)
[2023-05-09 18:20] VITALS: BP 133/65; TEMP 98.1; O2SAT 98
[2023-05-09] MEDS: RAMELTEON 8 MG TAB (ROZEREM) PO SCH (21:06)
[2023-05-09] MEDS: TAMSULOSIN 0.4 MG CAP PO SCH (21:07)
[2023-05-09] MEDS: DOXAZOSIN MESYLATE 1 MG TAB PO SCH (21:08)
[2023-05-10 06:44] VITALS: BP 112/53; TEMP 97.9; O2SAT 98
[2023-05-10] MEDS: PANTOPRAZOLE 40MG TAB (PROTONIX) PO SCH (09:09)
[2023-05-10] MEDS: SENOKOT S TAB PO SCH ×2 (09:09→20:16)
[2023-05-10 18:35] VITALS: BP 137/85; TEMP 98.2; O2SAT 100
[2023-05-10] MEDS: TAMSULOSIN 0.4 MG CAP PO SCH (20:16)
[2023-05-10] MEDS: DOXAZOSIN MESYLATE 1 MG TAB PO SCH (20:16)
[2023-05-10] MEDS: RAMELTEON 8 MG TAB (ROZEREM) PO SCH (20:17)
[2023-05-11 06:23] VITALS: BP 128/76; TEMP 98; O2SAT 97
[2023-05-11] MEDS: PANTOPRAZOLE 40MG TAB (PROTONIX) PO SCH (08:02)
[2023-05-11] MEDS: SENOKOT S TAB PO SCH ×2 (08:02→20:33)
[2023-05-11] MEDS ORDERED: BENZTROPINE 1 MG TAB PO PRN (10:05)
[2023-05-11 18:57] VITALS: BP 126/60; TEMP 98
[2023-05-11] MEDS: TAMSULOSIN 0.4 MG CAP PO SCH (20:33)
[2023-05-11] MEDS: DOXAZOSIN MESYLATE 1 MG TAB PO SCH (20:33)
[2023-05-11] MEDS: RAMELTEON 8 MG TAB (ROZEREM) PO SCH (20:33)
[2023-05-12 06:41] VITALS: BP 116/71; TEMP 97.8; O2SAT 98
[2023-05-12] MEDS: SENOKOT S TAB PO SCH ×2 (10:58→20:15)
[2023-05-12] MEDS: PANTOPRAZOLE 40MG TAB (PROTONIX) PO SCH (10:58)
[2023-05-12 18:51] VITALS: BP 133/79; TEMP 97.9; O2SAT 97
[2023-05-12] MEDS: TAMSULOSIN 0.4 MG CAP PO SCH (20:15)
[2023-05-12] MEDS: RAMELTEON 8 MG TAB (ROZEREM) PO SCH (20:15)
[2023-05-12] MEDS: DOXAZOSIN MESYLATE 1 MG TAB PO SCH (20:16)
[2023-05-13 06:48] VITALS: BP 118/74; TEMP 97.5; O2SAT 96
[2023-05-13] MEDS: PANTOPRAZOLE 40MG TAB (PROTONIX) PO SCH (10:04)
[2023-05-13] MEDS: SENOKOT S TAB PO SCH ×2 (10:04→20:24)
[2023-05-13 18:27] VITALS: BP 124/82; TEMP 96.9
[2023-05-13] MEDS: TAMSULOSIN 0.4 MG CAP PO SCH (20:23)
[2023-05-13] MEDS: RAMELTEON 8 MG TAB (ROZEREM) PO SCH (20:24)
[2023-05-13 20:25] VITALS: BP 130/75
[2023-05-13] MEDS: DOXAZOSIN MESYLATE 1 MG TAB PO SCH (20:25)
[2023-05-14 06:42] VITALS: BP 121/76; TEMP 97.6; O2SAT 98
[2023-05-14] MEDS: PANTOPRAZOLE 40MG TAB (PROTONIX) PO SCH (08:19)
[2023-05-14] MEDS: SENOKOT S TAB PO SCH (08:19)
[2023-05-14] MEDS ORDERED: BENZ1TAB5 PO (08:45)
[2023-05-14] MEDS ORDERED: CLOZ50TA4 PO (08:45)
[2023-05-14] MEDS ORDERED: CLOZ200T4 PO (08:45)
[2023-05-14 09:15] LABS: BASO # 0.1 10^3/uL (0.0-0.2); BASO % 0.7 % (0.0-1.0); EOS # 0.2 10^3/uL (0.0-0.5); EOS % 2.5 % (0.0-3.0); HEMATOCRIT 37.9 % (42.0-52.0); HEMOGLOBIN 12.2 g/dl (13.5-17.5); LYMPH # 2.1 10^3/uL (1.5-5.0); LYMPH % 27.7 % (24.0-44.0); MEAN CORPUSCULAR HEMOGLOBIN 28.9 pg (27.0-33.0); MEAN CORPUSCULAR HGB CONC 32.2 g/dl (32.0-36.5); MEAN CORPUSCULAR VOLUME 89.8 fl (80.0-96.0); MONO # 0.6 10^3/uL (0.0-0.8); MONO % 7.9 % (2.0-8.0); NEUTROPHILS # 4.4 10^3/uL (1.5-8.5); NEUTROPHILS % 59.5 % (36.0-66.0); PLATELET COUNT, AUTOMATED 261 10^3/uL (150-450); RED BLOOD COUNT 4.22 10^6/uL (4.30-6.10); WHITE BLOOD COUNT 7.5 10^3/uL (4.0-10.0)
[2023-05-14 12:11] LABS: CLOZAPINE 1 392 ng/mL (350-600); CLOZAPINE 2 199 ng/mL (Not Estab.); CLOZAPINE 3 591 ng/mL (.)
[2023-05-14] MEDS ORDERED: CLOZ100T5 PO (13:58)
== END 2023-05-14 15:35 | disposition home or self-care (01) | DRG 885 ==
LOC: M PSY 16:15 → OBSVTOIN 16:15
PROVIDERS: ADMIT Student in an Organized Health Care Education/Training Program; ATTEND Student in an Organized Health Care Education/Training Program
DX: F20.9 Schizophrenia, unspecified (principal); F84.9 Pervasive developmental disorder, unspecified; N40.0 Benign prostatic hyperplasia without lower urinary tract symptoms; K59.00 Constipation, unspecified; K21.9 Gastro-esophageal reflux disease without esophagitis; J32.9 Chronic sinusitis, unspecified; K52.9 Noninfective gastroenteritis and colitis, unspecified; G93.0 Cerebral cysts; Z20.822 Contact with and (suspected) exposure to COVID-19; Z79.899 Other long term (current) drug therapy

== ENCOUNTER 2025-09-11 13:15 | Inpatient (IN) | payer MEDICARE, MEDICAID ==
[~2025-09-11] VITALS: Ht 180.3 cm; Wt 66.0 kg
[~2025-09-11 13:15] MED LIST changes: +BENZ1TAB5 PO; +CLOZ200T4 PO; -FLOM0.4C39 PO; +TAMS-18 PO
[2025-09-11] MEDS ORDERED: CLOZ200T4 PO (13:33)
[2025-09-11] MEDS ORDERED: CLOZ100T5 PO (13:33)
[2025-09-11] MEDS ORDERED: ZOLP10TA11 PO (13:33)
[2025-09-11 14:40] LABS: PLATELET COUNT, AUTOMATED 396 10^3/uL (150-450)
[2025-09-11 15:09] LABS: AMPHETAMINES LEVEL URINE NEGATIVE (NEGATIVE); BARBITURATES URINE NEGATIVE (NEGATIVE); BENZODIAZEPINES URINE NEGATIVE (NEGATIVE); COCAINE METABOLITE URINE NEGATIVE (NEGATIVE); METHADONE URINE NEGATIVE (NEGATIVE); OPIATES URINE NEGATIVE (NEGATIVE); PHENCYCLIDINE URINE NEGATIVE (NEGATIVE)
[2025-09-11 15:12] LABS: ETHYL ALCOHOL (ETHANOL) 0.004 % (0.000-0.010)
[2025-09-11 15:14] LABS: CANNABINOIDS URINE POSITIVE (NEGATIVE); SALICYLATE LEVEL < 3.0 MG/DL (<30)
[2025-09-11 15:15] LABS: ALT/SGPT 25 U/L (7.0-40); AST/SGOT 43 U/L (<34); CALCIUM LEVEL 9.7 MG/DL (8.5-10.1); CARBON DIOXIDE LEVEL 25 MMOL/L (20-31); CHLORIDE LEVEL 106 MMOL/L (98-107); CREATININE FOR GFR 1.16 MG/DL (0.70-1.30); GLOMERULAR FILTRATION RATE 76.3 (>56); POTASSIUM SERUM 3.9 MMOL/L (3.5-5.1); SODIUM LEVEL 145 MMOL/L (136-145)
[2025-09-11] MEDS ORDERED: OLANZapine 5 MG TAB PO PRN (16:45)
[2025-09-11] MEDS ORDERED: MAALOX 30 ML SUSP *UDC PO PRN (16:45)
[2025-09-11] MEDS ORDERED: CLOZ50TA4 PO (17:58)
[2025-09-11] MEDS ORDERED: HOME MED LIST COMPLETE! XX SCH (18:00)
[2025-09-11] MEDS: LORazepam 1 MG TAB PO PRN (21:09)
[2025-09-11 21:24] VITALS: TEMP 97.1; O2SAT 95
[2025-09-12 08:36] VITALS: BP 128/82; TEMP 97.2; O2SAT 98
[2025-09-12] MEDS: NICOTINE 14 MG/24 HR TRANSDERMAL TD SCH (09:00)
[2025-09-12 14:29] LABS: KETONE, URINE AUTO RFX TRACE mg/dL (NEGATIVE); LEUKOCYTE ESTERASE UR AUTO RFX NEGATIVE (NEGATIVE); MUCUS, URINE RFX LARGE (NEGATIVE); NITRITE, URINE AUTO RFX NEGATIVE (NEGATIVE); RBC, URINE AUTO RFX 19 /HPF (0-3); SQUAM EPITHELIAL CELL UR AURFX 0 /HPF (0-6); WBC, URINE AUTO RFX 9 /HPF (0-3)
[2025-09-12 16:33] VITALS: BP 144/72; TEMP 98.2; O2SAT 98
[2025-09-13 06:47] VITALS: BP 150/90; TEMP 98.4; O2SAT 96
[2025-09-13] MEDS: IBUPROFEN 400 MG TAB PO PRN (08:57)
[2025-09-13] MEDS ORDERED: NICOTINE 14 MG/24 HR TRANSDERMAL TD PRN (14:20)
[2025-09-13 16:12] VITALS: BP 127/88; TEMP 97.5; O2SAT 95
[2025-09-13] MEDS: traZODone 50 MG TAB PO PRN (20:21)
[2025-09-13] MEDS: GASTROGRAFIN SOLUTION 30ML PO SCH (21:51)
[2025-09-14] MEDS: ACETAMINOPHEN 325 MG TAB PO PRN (15:40)
[2025-09-14 15:41] VITALS: BP 144/90; TEMP 97.7; O2SAT 97
[2025-09-15 14:47] VITALS: BP 144/83; TEMP 97.8; O2SAT 96
[2025-09-15] MEDS: MOM 30 ML SUSPENSION UDC PO PRN (15:10)
[2025-09-16 15:57] VITALS: BP 128/92; TEMP 97.8; O2SAT 98
[2025-09-17] MEDS: OLANZapine 5 MG TAB PO SCH (14:20)
[2025-09-17 16:20] VITALS: BP 142/98; TEMP 97.2; O2SAT 97
[2025-09-17] MEDS: HALOPERIDOL 5 MG TAB PO PRN (16:38)
[2025-09-17] MEDS: VALPROIC ACID 250MG CAP PO SCH (20:31)
[2025-09-18] MEDS: VALPROIC ACID 250MG CAP PO SCH (11:05)
[2025-09-18] MEDS ORDERED: TRIMETHOPRIM/SULFAMETH 80/400 MG TAB PO SCH (12:00)
[2025-09-18] MEDS: BACTRIM 160MG/800MG DS TAB PO SCH (12:00)
[2025-09-18 16:49] VITALS: BP 128/79; TEMP 98.3; O2SAT 98
[2025-09-19 06:31] VITALS: BP 149/80; TEMP 97.4; O2SAT 98
[2025-09-19 10:03] LABS: BASO # 0.0 10^3/uL (0.0-0.2); BASO % 0.3 % (0.0-1.0); EOS # 0.1 10^3/uL (0.0-0.5); EOS % 0.6 % (0.0-3.0); LYMPH # 1.4 10^3/uL (1.5-5.0); LYMPH % 11.9 % (24.0-44.0); MONO # 1.1 10^3/uL (0.0-0.8); MONO % 9.0 % (2.0-8.0); NEUTROPHILS # 9.1 10^3/uL (1.5-8.5); NEUTROPHILS % 77.8 % (36.0-66.0); PLATELET COUNT, AUTOMATED 405 10^3/uL (150-450)
[2025-09-19 15:30] VITALS: BP 144/79; TEMP 97.7; O2SAT 95
[2025-09-20 06:12] VITALS: BP 125/69; TEMP 98.3; O2SAT 99
[2025-09-20] MEDS: TAMSULOSIN 0.4 MG CAP PO SCH (10:58)
[2025-09-20 16:36] VITALS: BP 139/75; TEMP 98.3; O2SAT 95
[2025-09-21 06:55] VITALS: BP 130/67; TEMP 97.4; O2SAT 99
[2025-09-21 10:07] LABS: CLOZAPINE 1 584 ng/mL (350-600); CLOZAPINE 2 399 ng/mL (Not Estab.); CLOZAPINE 3 983 ng/mL (.)
[2025-09-21 14:38] VITALS: BP 115/67; TEMP 97.8; O2SAT 97
[2025-09-22 06:24] VITALS: BP 145/68; TEMP 98.5; O2SAT 98
[2025-09-22 15:18] VITALS: BP 95/61; TEMP 97.8; O2SAT 98
[2025-09-22] MEDS: VANICREAM MOISTURIZING SKIN CREAM 113GM TUBE TOP SCH (16:33)
[2025-09-23 06:32] VITALS: BP 127/68; TEMP 97.2; O2SAT 99
[2025-09-23 15:24] VITALS: BP 124/73; TEMP 97.7; O2SAT 100
[2025-09-24 15:13] VITALS: BP 121/54; TEMP 98.3; O2SAT 97
[2025-09-25 06:38] VITALS: BP 132/73; TEMP 98.1; O2SAT 97
[2025-09-25 08:13] VITALS: BP 132/73; TEMP 98.1; O2SAT 97
[2025-09-25 09:56] VITALS: TEMP 97
[2025-09-25 15:06] VITALS: BP 121/58; TEMP 97.3; O2SAT 98
[2025-09-25] MEDS: POLYTRIM OPTH DROPS 10ML OD SCH (15:27)
[2025-09-26 06:25] VITALS: BP 110/70; TEMP 97.6; O2SAT 96
[2025-09-26 17:21] VITALS: BP 116/56; TEMP 97.9; O2SAT 95
[2025-09-26] MEDS: OLANZapine 10 MG TAB PO SCH (20:35)
[2025-09-26] MEDS: BENZTROPINE 0.5 MG TAB PO SCH (20:35)
[2025-09-27 06:16] VITALS: BP 102/58; TEMP 97.1; O2SAT 99
[2025-09-27 14:29] VITALS: BP 123/75; TEMP 97.5; O2SAT 99
[2025-09-28 06:27] VITALS: BP_SYST 118; BP_SYST 145; BP_DIAS 59; BP_DIAS 65; TEMP 97.7; O2SAT 100; O2SAT 97
[2025-09-28 16:00] VITALS: BP 144/63; TEMP 97.4; O2SAT 97
[2025-09-28] MEDS ORDERED: OLOPATADINE 0.1% OPHTH SOL 5ML OD SCH (17:00)
[2025-09-28] MEDS: POLYVINYL ALCOHOL OPHTH SOLN 15ML (LIQUITEARS) OD SCH (20:57)
[2025-09-29 06:25] VITALS: BP 104/70; TEMP 97.8; O2SAT 98
[2025-09-29 14:40] VITALS: BP 124/60; TEMP 97.5; O2SAT 99
[2025-09-29 15:13] VITALS: BP 129/83; TEMP 97.8; O2SAT 100
[2025-09-30 06:30] VITALS: BP 131/63; TEMP 100.7; O2SAT 99
[2025-09-30 07:40] VITALS: TEMP 99.7
[2025-09-30 08:28] LABS: PLATELET COUNT, AUTOMATED 304 10^3/uL (150-450)
[2025-09-30 09:03] LABS: ALT/SGPT 25 U/L (7.0-40); AST/SGOT 31 U/L (<34); CALCIUM LEVEL 8.6 MG/DL (8.5-10.1); CARBON DIOXIDE LEVEL 27 MMOL/L (20-31); CHLORIDE LEVEL 106 MMOL/L (98-107); CREATININE FOR GFR 0.94 MG/DL (0.70-1.30); GLOMERULAR FILTRATION RATE > 90.0 (>56); POTASSIUM SERUM 4.0 MMOL/L (3.5-5.1); SODIUM LEVEL 141 MMOL/L (136-145)
[2025-09-30] MEDS ORDERED: ONDANSETRON 4MG ORAL DISINTEGRATING TAB SL PRN (09:20)
[2025-09-30 15:18] VITALS: BP 103/57; TEMP 99; O2SAT 98
[2025-09-30 18:19] LABS: KETONE, URINE AUTO RFX TRACE mg/dL (NEGATIVE); LEUKOCYTE ESTERASE UR AUTO RFX NEGATIVE (NEGATIVE); MUCUS, URINE RFX MODERATE (NEGATIVE); NITRITE, URINE AUTO RFX NEGATIVE (NEGATIVE); RBC, URINE AUTO RFX 1 /HPF (0-3); SQUAM EPITHELIAL CELL UR AURFX 0 /HPF (0-6); WBC, URINE AUTO RFX 1 /HPF (0-3)
[2025-10-01 06:19] VITALS: BP 112/59; TEMP 100.2; O2SAT 99
[2025-10-01 12:46] LABS: PLATELET COUNT, AUTOMATED 291 10^3/uL (150-450)
[2025-10-01 13:26] LABS: ALT/SGPT 29 U/L (7.0-40); AST/SGOT 43 U/L (<34); CALCIUM LEVEL 8.8 MG/DL (8.5-10.1); CARBON DIOXIDE LEVEL 30 MMOL/L (20-31); CHLORIDE LEVEL 102 MMOL/L (98-107); CREATININE FOR GFR 0.89 MG/DL (0.70-1.30); GLOMERULAR FILTRATION RATE > 90.0 (>56); POTASSIUM SERUM 3.9 MMOL/L (3.5-5.1); SODIUM LEVEL 143 MMOL/L (136-145)
[2025-10-01 18:13] VITALS: BP 115/63; TEMP 99.3
[2025-10-02 06:23] VITALS: BP 124/59; TEMP 98; O2SAT 95
[2025-10-02 15:15] VITALS: BP_SYST 107; BP_SYST 113; BP_DIAS 53; BP_DIAS 63; TEMP 97.9; O2SAT 98
[2025-10-03 06:15] VITALS: BP 122/73; TEMP 97; O2SAT 99
[2025-10-03 15:43] VITALS: BP 141/80; TEMP 97.8; O2SAT 98
[2025-10-04 05:52] VITALS: BP 105/61; TEMP 97.8; O2SAT 96
[2025-10-04 15:44] VITALS: BP 124/67; TEMP 97.8; O2SAT 97
[2025-10-05 06:05] VITALS: BP 117/71; TEMP 97.7; O2SAT 98
[2025-10-05] MEDS ORDERED: TUBERCULIN PPD 5 UNITS/0.1 ML ID ONE (10:30)
[2025-10-05 16:55] VITALS: BP 124/84; TEMP 97; O2SAT 99
[2025-10-05] MEDS: **PENDING PPD ENTRY XX SCH (21:06)
[2025-10-06 06:32] VITALS: BP 117/78; TEMP 97.4; O2SAT 99
[2025-10-06] MEDS: TUBERCULIN PPD 5 UNITS/0.1 ML ID ONE (11:36)
[2025-10-06 15:14] VITALS: BP 108/71; TEMP 97.6; O2SAT 99
[2025-10-07 06:20] VITALS: BP 122/59; TEMP 97.5; O2SAT 96
[2025-10-07] MEDS ORDERED: PPD DOCUMENTATION ENTRY MISC XX SCH (10:00)
[2025-10-07 15:00] VITALS: BP 117/67; TEMP 98; O2SAT 99
[2025-10-08 06:23] VITALS: BP 129/80; TEMP 97.8; O2SAT 98
[2025-10-08] MEDS: PPD DOCUMENTATION ENTRY MISC XX ONE (12:14)
[2025-10-08] MEDS ORDERED: DOCUSATE SODIUM 100 MG CAPSULE PO PRN (12:25)
[2025-10-08] MEDS: DOCUSATE SODIUM 100 MG CAPSULE PO SCH (12:52)
[2025-10-08 15:17] VITALS: BP 138/68; TEMP 97.1; O2SAT 97
[2025-10-09 06:31] VITALS: BP 122/84; TEMP 97.2; O2SAT 98
[2025-10-09 18:45] VITALS: BP 113/55; TEMP 98
[2025-10-10 06:31] VITALS: BP 94/50; TEMP 97.6; O2SAT 97
[2025-10-10 15:16] VITALS: BP 108/59; TEMP 97.6; O2SAT 98
[2025-10-11 06:46] VITALS: BP 152/71; TEMP 97.2; O2SAT 96
[2025-10-11] MEDS ORDERED: VANICREAM MOISTURIZING SKIN CREAM 113GM TUBE TOP PRN (09:30)
[2025-10-11 15:08] VITALS: BP 126/68; TEMP 97.4; O2SAT 98
[2025-10-12 06:20] VITALS: BP 101/56; TEMP 97.1; O2SAT 98
[2025-10-12 13:42] VITALS: TEMP 97.7
[2025-10-12 16:47] VITALS: BP 102/57; TEMP 98.5; O2SAT 97
[2025-10-13 06:36] VITALS: BP 107/61; TEMP 97.3; O2SAT 99
[2025-10-13 14:33] VITALS: BP 118/69; TEMP 97.6; O2SAT 99
[2025-10-14 06:06] VITALS: BP 107/74; TEMP 97; O2SAT 95
[2025-10-14 13:48] LABS: RSV AMPLIFICATION NEGATIVE (NEGATIVE)
[2025-10-14 14:41] VITALS: BP 130/73; TEMP 97.2; O2SAT 100
[2025-10-14] MEDS ORDERED: CLOZ100T5 PO ×2 (15:01)
[2025-10-14] MEDS ORDERED: TRAZ-252 PO (15:01)
[2025-10-14] MEDS ORDERED: OLAN1TAB20 PO (15:01)
[2025-10-14] MEDS ORDERED: VALP1CAP2 PO ×2 (15:01)
[2025-10-14] MEDS ORDERED: BENZ0.5T2 PO (15:01)
[2025-10-14] MEDS ORDERED: TAMS1CAP17 PO (15:01)
[2025-10-15 06:34] VITALS: BP 112/64; TEMP 97.4; O2SAT 98
== END 2025-10-15 12:19 | DRG 885 ==
LOC: M ED 13:15 → M ED INP 16:42 → M PSY 20:32
PROVIDERS: ADMIT Internal Medicine; ATTEND Internal Medicine
DX: F20.9 Schizophrenia, unspecified (principal); J98.11 Atelectasis; M25.571 Pain in right ankle and joints of right foot; F41.9 Anxiety disorder, unspecified; F12.20 Cannabis dependence, uncomplicated; G47.00 Insomnia, unspecified; Z79.899 Other long term (current) drug therapy; B34.8 Other viral infections of unspecified site; H57.89 Other specified disorders of eye and adnexa